=== PATIENT | female | born 1945 | race Caucasian/White ===

== ENCOUNTER → 2017-03-18 | Outpatient (CLI) | payer MEDICARE, BC ==
[2017-03-18 08:16] LABS: ALBUMIN 3.5 GM/DL (3.2-5.2); CALCIUM LEVEL 8.8 MG/DL (8.8-10.2); CREATININE FOR GFR 1.15 MG/DL (0.55-1.02); GLOMERULAR FILTRATION RATE 49.5 (>39); PHOSPHORUS LEVEL 3.7 MG/DL (2.5-4.9); POTASSIUM SERUM 4.3 MEQ/L (3.5-5.1)
== END ==
LOC: M LAB 07:08
PROVIDERS: ATTEND Physician Assistant
DX: I50.32 Chronic diastolic (congestive) heart failure (principal)

== ENCOUNTER → 2017-04-29 | Outpatient (REF) | payer MEDICARE, BC | LOC: M LAB REF 13:02 | PROVIDERS: ATTEND Internal Medicine Medical Oncology | DX: C50.919 Malignant neoplasm of unspecified site of unspecified female breast (principal) ==

== ENCOUNTER → 2017-06-19 | Outpatient (CLI) | payer MEDICARE, BC ==
[2017-06-19 08:10] LABS: ALBUMIN 3.4 GM/DL (3.2-5.2); ALBUMIN/GLOBULIN RATIO 1.17 (1.00-1.93); BILIRUBIN,TOTAL 0.7 MG/DL (0.2-1.0); CALCIUM LEVEL 8.8 MG/DL (8.8-10.2); CREATININE FOR GFR 1.03 MG/DL (0.55-1.02); GLOMERULAR FILTRATION RATE 56.2 (>39); POTASSIUM SERUM 4.4 MEQ/L (3.5-5.1); TOTAL PROTEIN 6.3 GM/DL (6.4-8.2)
== END ==
LOC: M LAB 06:53
PROVIDERS: ATTEND Physician Assistant
DX: I50.32 Chronic diastolic (congestive) heart failure (principal); E78.00 Pure hypercholesterolemia, unspecified

== ENCOUNTER → 2017-11-05 | Outpatient (CLI) | payer MEDICARE, BC ==
[2017-11-05 08:05] LABS: ALBUMIN 3.5 GM/DL (3.2-5.2); ALBUMIN/GLOBULIN RATIO 1.17 (1.00-1.93); ALKALINE PHOSPHATASE 82 U/L (45-117); ALT/SGPT 27 U/L (12-78); ANION GAP 7 MEQ/L (8-16); AST/SGOT 19 U/L (7-37); BILIRUBIN,TOTAL 0.7 MG/DL (0.2-1.0); BLOOD UREA NITROGEN 29 MG/DL (7-18); CALCIUM LEVEL 8.5 MG/DL (8.8-10.2); CARBON DIOXIDE LEVEL 27 MEQ/L (21-32); CHLORIDE LEVEL 109 MEQ/L (98-107); CHOLESTEROL LEVEL 196 MG/DL (<200); CHOLESTEROL RISK RATIO 3.266 (<5); GLOMERULAR FILTRATION RATE 52.1 (>39); GLUCOSE, FASTING 94 MG/DL (70-100); HDL CHOLESTEROL 60 MG/DL (>40); LDL CHOLESTEROL 116.8 MG/DL (<100); NON-HDL-C 136 MG/DL; POTASSIUM SERUM 4.4 MEQ/L (3.5-5.1); SODIUM LEVEL 143 MEQ/L (136-145); TOTAL PROTEIN 6.5 GM/DL (6.4-8.2); TRIGLYCERIDES LEVEL 96 MG/DL (<150)
== END ==
LOC: M LAB 06:38
DX: E78.00 Pure hypercholesterolemia, unspecified (principal); I50.32 Chronic diastolic (congestive) heart failure
CPT/HCPCS: 80053

== ENCOUNTER → 2018-01-26 | Outpatient (REF) | payer MEDICARE, BC ==
[2018-01-26 14:44] LABS: CA15-3 ANTIGEN 13.9 U/ML (<32.4)
== END ==
LOC: M LAB REF 13:19
DX: C50.919 Malignant neoplasm of unspecified site of unspecified female breast (principal)
CPT/HCPCS: 86300

== ENCOUNTER → 2018-02-01 | Outpatient (CLI) | payer MEDICARE, BC ==
[2018-02-01 08:22] LABS: ALBUMIN 3.5 GM/DL (3.2-5.2); ANION GAP 7 MEQ/L (8-16); BLOOD UREA NITROGEN 22 MG/DL (7-18); CALCIUM LEVEL 8.5 MG/DL (8.8-10.2); CARBON DIOXIDE LEVEL 27 MEQ/L (21-32); CHLORIDE LEVEL 110 MEQ/L (98-107); CREATININE FOR GFR 1.08 MG/DL (0.55-1.30); GLOMERULAR FILTRATION RATE 53.1 (>39); GLUCOSE, FASTING 99 MG/DL (70-100); MAGNESIUM LEVEL 2.3 MG/DL (1.8-2.4); PHOSPHORUS LEVEL 3.1 MG/DL (2.5-4.9); POTASSIUM SERUM 4.2 MEQ/L (3.5-5.1); SODIUM LEVEL 144 MEQ/L (136-145)
== END ==
LOC: M LAB 07:23
DX: I50.32 Chronic diastolic (congestive) heart failure (principal)
CPT/HCPCS: 83735

== ENCOUNTER → 2018-05-20 | Outpatient (CLI) | payer MEDICARE, BC ==
[2018-05-20 07:25] LABS: ALBUMIN 3.6 GM/DL (3.2-5.2); ANION GAP 10 MEQ/L (8-16); BLOOD UREA NITROGEN 32 MG/DL (7-18); CALCIUM LEVEL 8.8 MG/DL (8.8-10.2); CARBON DIOXIDE LEVEL 25 MEQ/L (21-32); CHLORIDE LEVEL 109 MEQ/L (98-107); GLUCOSE, FASTING 98 MG/DL (70-100); MAGNESIUM LEVEL 2.2 MG/DL (1.8-2.4); PHOSPHORUS LEVEL 3.7 MG/DL (2.5-4.9); POTASSIUM SERUM 4.5 MEQ/L (3.5-5.1); SODIUM LEVEL 144 MEQ/L (136-145)
== END ==
LOC: M LAB 06:46
DX: I50.32 Chronic diastolic (congestive) heart failure (principal)
CPT/HCPCS: 83735

== ENCOUNTER → 2018-08-23 | Outpatient (CLI) | payer MEDICARE, BC ==
[2018-08-23 07:33] LABS: ANION GAP 6 MEQ/L (8-16); BLOOD UREA NITROGEN 26 MG/DL (7-18); CALCIUM LEVEL 8.8 MG/DL (8.8-10.2); CARBON DIOXIDE LEVEL 25 MEQ/L (21-32); CHLORIDE LEVEL 110 MEQ/L (98-107); CREATININE FOR GFR 1.04 MG/DL (0.55-1.30); GLOMERULAR FILTRATION RATE 55.5 (>39); GLUCOSE, FASTING 105 MG/DL (70-100); MAGNESIUM LEVEL 1.9 MG/DL (1.8-2.4); POTASSIUM SERUM 4.3 MEQ/L (3.5-5.1); SODIUM LEVEL 141 MEQ/L (136-145)
== END ==
LOC: M LAB 06:27
DX: I50.32 Chronic diastolic (congestive) heart failure (principal); E83.42 Hypomagnesemia
CPT/HCPCS: 83735

== ENCOUNTER 2018-11-08 18:23 | Emergency (ER) | payer MEDICARE, BC ==
[~2018-11-08] VITALS: Ht 170.2 cm; Wt 110.0 kg
[2018-11-08 18:23] VITALS: BP 159/70
[~2018-11-08 18:23] MED LIST: ASPI325T25 PO; CARV40CA PO; CO Q200C10 PO; FURO20TA2 PO; LOSA25TA14 PO; MOME50SP2 NARES; PRAV40TA2 PO; TURM500C PO
[2018-11-08] MEDS ORDERED: CARV10CA (18:41)
[2018-11-08] MEDS ORDERED: KEFL500C17 PO (19:13)
[2018-11-08] MEDS ORDERED: VOLT1GEL15 TOP (19:13)
[2018-11-08] MEDS ORDERED: CEPHALEXIN 500 MG CAP PO ONE (19:15)
== END 2018-11-08 19:22 | disposition home or self-care (01) ==
LOC: M ED 18:23
DX: L03.115 Cellulitis of right lower limb (principal); S80.11XA Contusion of right lower leg, initial encounter; W22.8XXA Striking against or struck by other objects, initial encounter; S90.561A Insect bite (nonvenomous), right ankle, initial encounter; W57.XXXA Bitten or stung by nonvenomous insect and other nonvenomous arthropods, initial encounter; Y92.89 Other specified places as the place of occurrence of the external cause; I10 Essential (primary) hypertension; K21.9 Gastro-esophageal reflux disease without esophagitis; Z79.899 Other long term (current) drug therapy; Z79.82 Long term (current) use of aspirin
CPT/HCPCS: 99282; G0463

== ENCOUNTER → 2018-12-31 | Outpatient (CLI) | payer MEDICARE, BC ==
[~2018-12-31] MED LIST changes: +ASPI-255 PO; -ASPI325T25 PO; +CARV10CA; +KEFL500C17 PO; +VOLT1GEL15 TOP
[2018-12-31 07:56] LABS: ALBUMIN 3.5 GM/DL (3.2-5.2); BILIRUBIN,TOTAL 0.6 MG/DL (0.2-1.0); CALCIUM LEVEL 8.3 MG/DL (8.8-10.2); CHOLESTEROL RISK RATIO 2.724 (<5); CREATININE FOR GFR 1.1 MG/DL (0.55-1.30); POTASSIUM SERUM 4.2 MEQ/L (3.5-5.1); TOTAL PROTEIN 6.3 GM/DL (6.4-8.2)
== END ==
LOC: M LAB 06:54
PROVIDERS: ATTEND Physician Assistant
DX: I50.32 Chronic diastolic (congestive) heart failure (principal); E78.00 Pure hypercholesterolemia, unspecified

== ENCOUNTER 2019-02-15 19:24 | Emergency (ER) | payer MEDICARE, BC ==
[~2019-02-15] VITALS: Ht 170.2 cm; Wt 109.1 kg
[~2019-02-15 19:24] MED LIST changes: -CARV10CA; +CARV10CA PO; +GREE1TAB PO; +RA T500C2 PO; +SELE100T PO
[2019-02-15 19:25] VITALS: BP 164/70
== END 2019-02-15 20:21 | disposition left against medical advice (07) ==
LOC: M ED 19:24
DX: Z53.21 Procedure and treatment not carried out due to patient leaving prior to being seen by health care provider (principal)

== ENCOUNTER → 2019-07-07 | Outpatient (CLI) | payer MEDICARE, BC ==
[2019-07-07 07:31] LABS: CALCIUM LEVEL 8.5 MG/DL (8.8-10.2); CREATININE FOR GFR 1.23 MG/DL (0.55-1.30); GLOMERULAR FILTRATION RATE 45.6 (>39)
== END ==
LOC: M LAB 06:32
PROVIDERS: ATTEND Physician Assistant
DX: E83.42 Hypomagnesemia (principal); I50.32 Chronic diastolic (congestive) heart failure

== ENCOUNTER → 2019-10-04 | Outpatient (CLI) | payer MEDICARE, BC ==
[2019-10-04 08:41] LABS: CALCIUM LEVEL 8.5 MG/DL (8.8-10.2); CREATININE FOR GFR 1.09 MG/DL (0.55-1.30); GLOMERULAR FILTRATION RATE 52.4 (>39); POTASSIUM SERUM 4.4 MEQ/L (3.5-5.1)
[2019-10-04 15:57] LABS: MAGNESIUM LEVEL 2.2 MG/DL (1.8-2.4)
== END ==
LOC: M LAB 07:12
PROVIDERS: ATTEND Physician Assistant
DX: I50.32 Chronic diastolic (congestive) heart failure (principal)

== ENCOUNTER → 2020-01-02 | Outpatient (CLI) | payer MEDICARE, BC ==
[2020-01-02 07:02] LABS: ALBUMIN 3.6 GM/DL (3.2-5.2); BILIRUBIN,TOTAL 0.9 MG/DL (0.2-1.0); CALCIUM LEVEL 8.9 MG/DL (8.8-10.2); CHOLESTEROL RISK RATIO 3.37 (<5); CREATININE FOR GFR 1.09 MG/DL (0.55-1.30); GLOMERULAR FILTRATION RATE 52.4 (>39); POTASSIUM SERUM 4.1 MEQ/L (3.5-5.1); TOTAL PROTEIN 6.7 GM/DL (6.4-8.2)
== END ==
LOC: M LAB 05:59
PROVIDERS: ATTEND Physician Assistant
DX: I50.32 Chronic diastolic (congestive) heart failure (principal)

== ENCOUNTER → 2020-04-18 | Outpatient (CLI) | payer MEDICARE, BC ==
[~2020-04-18] MED LIST changes: +ASPI325T55 PO; +ASPI81CH33 PO; +OMEP-221 PO
[2020-07-03 12:09] LABS: GLUCOSE, FASTING SEE SEPARATE REPORT
== END ==
LOC: M LAB 07:16
PROVIDERS: ATTEND Physician Assistant
DX: I50.32 Chronic diastolic (congestive) heart failure (principal); E83.42 Hypomagnesemia

== ENCOUNTER 2020-05-21 10:17 | Emergency (ER) | payer BC, MEDICARE ==
[~2020-05-21] VITALS: Ht 170.2 cm; Wt 105.2 kg
[~2020-05-21 10:17] MED LIST changes: -ASPI325T55 PO
[2020-05-21] MEDS ORDERED: TETRACAINE 0.5% OPHTH SOLN 4ML OS ONE (11:30)
[2020-05-21] MEDS ORDERED: FLUORESCEIN OPHTH 1 MG STRIP OS ONE (11:30)
[2020-05-21 12:04] VITALS: BP 142/80
== END 2020-05-21 12:07 | disposition home or self-care (01) ==
LOC: M ED 10:17
DX: H11.32 Conjunctival hemorrhage, left eye (principal); I10 Essential (primary) hypertension; K21.9 Gastro-esophageal reflux disease without esophagitis; H33.302 Unspecified retinal break, left eye; Z79.899 Other long term (current) drug therapy; Z79.82 Long term (current) use of aspirin

== ENCOUNTER 2020-06-18 06:34 | Emergency (ER) | payer BC, MEDICARE ==
[~2020-06-18] VITALS: Ht 170.2 cm; Wt 105.4 kg
--- NOTE | 2020-06-18 07:35 | REPVR ---
PROCEDURE INFORMATION: Exam: XR Left Tibia and Fibula Exam date and time: 06/18/2020 7:25 AM Age: 75 years old Clinical indication: Swelling, leg or foot; Additional info: Bruising, bony tenderness TECHNIQUE: Imaging protocol: XR Left tibia and fibula. Views: 2 views. (4 images total) COMPARISON: No relevant prior studies available. FINDINGS: Bones/joints: No acute fracture or dislocation is identified. There is no osseous erosion or cortical destruction. No focal lytic or blastic lesion is identified. There is a small plantar calcaneal enthesophyte. Soft tissues: The soft tissues are diffusely swollen. IMPRESSION: Diffuse soft tissue swelling, nonspecific, without underlying osseous change. Electronically signed by: Ganesh Redmond On 06/18/2020 07:35:27 AM
[2020-06-18 07:56] VITALS: BP 132/80
== END 2020-06-18 07:57 | disposition home or self-care (01) ==
LOC: M ED 06:34
DX: S80.12XA Contusion of left lower leg, initial encounter (principal); W20.8XXA Other cause of strike by thrown, projected or falling object, initial encounter; Y92.098 Other place in other non-institutional residence as the place of occurrence of the external cause; I10 Essential (primary) hypertension; Z79.899 Other long term (current) drug therapy; Z79.82 Long term (current) use of aspirin; Z90.12 Acquired absence of left breast and nipple; Z96.643 Presence of artificial hip joint, bilateral

== ENCOUNTER 2020-06-26 06:34 | Emergency (ER) | payer BC, MEDICARE ==
[~2020-06-26] VITALS: Ht 170.2 cm; Wt 104.9 kg
[2020-06-26] MEDS ORDERED: ASPI325T55 PO (06:42)
[2020-06-26 07:38] LABS: HEMATOCRIT 33.7 % (36.0-47.0); MEAN CORPUSCULAR HEMOGLOBIN 29.6 pg (27.0-33.0); MEAN CORPUSCULAR HGB CONC 32.6 g/dl (32.0-36.5); MEAN CORPUSCULAR VOLUME 90.8 fl (80.0-96.0); PLATELET COUNT, AUTOMATED 180 10^3/uL (150-450); RED BLOOD COUNT 3.71 10^6/uL (4.00-5.40); WHITE BLOOD COUNT 5.3 10^3/uL (4.0-10.0)
[2020-06-26 07:57] LABS: ERYTHROCYTE SEDIMENTATION RATE 40 mm/hr (0-30)
[2020-06-26 08:03] LABS: INR 1.05; PARTIAL THROMBOPLASTIN TIME 31.9 SECONDS (24.2-38.5); PROTHROMBIN TIME 13.9 SECONDS (12.5-14.3)
--- NOTE | 2020-06-26 08:04 | REPVR ---
PROCEDURE INFORMATION: Exam: US Left Non-Vascular Joint or Other Extremity Structure, Limited Lower Extremity Exam date and time: 06/26/2020 7:46 AM Age: 75 years old Clinical indication: Swelling; Lower leg; Left; Additional info: Below knee for possible fluid collection TECHNIQUE: Imaging protocol: Limited ultrasound of the soft tissues of the left lower leg with combined grayscale and color flow imaging. COMPARISON: No relevant prior studies available. FINDINGS: Poorly defined soft tissue complex fluid collection in the region of reported trauma measuring 5.2 x 2.1 x 4.9 cm, and consistent with hematoma in the appropriate clinical setting. No surrounding subcutaneous edema or hyperemia is identified on color flow imaging, which would be expected in the setting of abscess. Follow-up imaging is recommended to ensure interval resolution. IMPRESSION: Poorly defined soft tissue complex fluid collection in the region of reported trauma measuring 5.2 x 2.1 x 4.9 cm, and consistent with hematoma in the appropriate clinical setting. Follow-up imaging is recommended to ensure interval resolution. Electronically signed by: Ken Hernandes On 06/26/2020 08:04:12 AM
[2020-06-26 08:07] LABS: C REACTIVE PROTEIN QUANTITATIV 2.15 MG/DL (0.00-0.30); CALCIUM LEVEL 8.5 MG/DL (8.8-10.2); CREATININE FOR GFR 1.11 MG/DL (0.55-1.30); GLOMERULAR FILTRATION RATE 51.2 (>39); POTASSIUM SERUM 4.4 MEQ/L (3.5-5.1)
[2020-06-26 08:48] VITALS: BP 146/71
--- NOTE | 2020-06-26 14:43 | ED PDOC ---
Post-Departure Follow-Up certified letter sent to pt re formal rad recommendations of extremity us. maribel fields pcp name and fax Patrick Enamorado MD Jun 26, 2020 14:43
== END 2020-06-26 08:51 | disposition home or self-care (01) ==
LOC: M ED 06:34
DX: S80.12XA Contusion of left lower leg, initial encounter (principal); W20.8XXA Other cause of strike by thrown, projected or falling object, initial encounter; Y92.89 Other specified places as the place of occurrence of the external cause; I10 Essential (primary) hypertension; Z96.643 Presence of artificial hip joint, bilateral; J45.909 Unspecified asthma, uncomplicated; Z79.899 Other long term (current) drug therapy; Z79.82 Long term (current) use of aspirin

== ENCOUNTER → 2020-07-23 | Outpatient (REF) | payer MEDICARE, BC ==
[~2020-07-23] MED LIST changes: +ASPI325T55 PO
[2020-07-23 17:51] LABS: APPEARANCE, URINE CLEAR (CLEAR); BACTERIA, URINE AUTO NEGATIVE (NEGATIVE); BILIRUBIN, URINE AUTO NEGATIVE (NEGATIVE); BLOOD, URINE BLOOD 2+ (NEGATIVE); COLOR, URINE YELLOW (YELLOW); GLUCOSE, URINE (UA) AUTO NEGATIVE (NEGATIVE); KETONE, URINE AUTO NEGATIVE (NEGATIVE); LEUKOCYTE ESTERASE, URINE AUTO NEGATIVE (NEGATIVE); MUCUS, URINE SMALL (NEGATIVE); NITRITE, URINE AUTO NEGATIVE (NEGATIVE); PROTEIN, URINE AUTO NEGATIVE (NEGATIVE); RBC, URINE AUTO 3 /HPF (0-3); SPECIFIC GRAVITY URINE AUTO 1.024 (1.002-1.035); SQUAMOUS EPITHELIAL CELL UR AU 1 /HPF (0-6); UROBILINOGEN, URINE AUTO 0.2 mg/dL (0.0-2.0); WBC, URINE AUTO 1 /HPF (0-3)
== END ==
LOC: M LAB REF 16:12
PROVIDERS: ATTEND Obstetrics & Gynecology
DX: N39.41 Urge incontinence (principal)

== ENCOUNTER → 2020-08-07 | Outpatient (CLI) | payer MEDICARE, BC ==
[~2020-08-07] MED LIST changes: +ALBU8.5H INH; +ASPI81TA26 PO; +CARA1TAB6 PO; +MIRA1POW3 PO; +ONDA8TAB10 PO; +PANT40TA29 PO; +PROC10TA4 PO; +tumeric PO
[2020-08-07 07:37] LABS: CALCIUM LEVEL 9.2 MG/DL (8.8-10.2); CREATININE FOR GFR 1.25 MG/DL (0.55-1.30); GLOMERULAR FILTRATION RATE 44.6 (>39); MAGNESIUM LEVEL 1.9 MG/DL (1.8-2.4); POTASSIUM SERUM 4.1 MEQ/L (3.5-5.1)
== END ==
LOC: M LAB 06:30
PROVIDERS: ATTEND Physician Assistant
DX: I50.32 Chronic diastolic (congestive) heart failure (principal); E83.42 Hypomagnesemia

== ENCOUNTER → 2020-08-07 | Outpatient (CLI) | payer MEDICARE, BC ==
[~2020-08-07] MED LIST changes: -ALBU8.5H INH; -ASPI81TA26 PO; -CARA1TAB6 PO; -MIRA1POW3 PO; -ONDA8TAB10 PO; -PANT40TA29 PO; -PROC10TA4 PO
[2020-08-07 07:42] LABS: CHOLESTEROL RISK RATIO 3.035 (<5)
== END ==
LOC: M LAB 06:27
PROVIDERS: ATTEND Nurse Practitioner Family
DX: E78.5 Hyperlipidemia, unspecified (principal); I10 Essential (primary) hypertension; E55.9 Vitamin D deficiency, unspecified; Z79.899 Other long term (current) drug therapy

== ENCOUNTER → 2020-09-06 | Outpatient (CLI) | payer MEDICARE, BC | LOC: M LABSMTC 09:32 | PROVIDERS: ATTEND Anesthesiology | DX: Z01.812 Encounter for preprocedural laboratory examination (principal); Z20.828 Contact with and (suspected) exposure to other viral communicable diseases ==

== ENCOUNTER 2020-09-11 10:13 | Day surgery (SDC) | payer MEDICARE, BC ==
[~2020-09-11] VITALS: Ht 167.6 cm; Wt 102.0 kg
[~2020-09-11 10:13] MED LIST changes: +LIDOCAINE 2% 100MG/5ML SDV (FOR ANES.) As Ordered ONE; +NS 1,000 ML IV ONE; +fentaNYL 100 MCG/2 ML INJECTION (J3010) As Ordered ONE; +propofoL 200 MG/20 ML VIAL As Ordered ONE
--- NOTE | 2020-09-11 11:43 | ROOR ---
Patient Name: Leonor Salgado Procedure Date: 09/11/2020 11:08 AM Date of : 1945 Age: 75 Room: [facility] Gender: Female Note Status: Finalized Procedure: Upper GI endoscopy Indications: Epigastric abdominal pain, Dysphagia, Heartburn Providers: Jose Elias MD Referring MD: Amara Lay Requesting Provider: Medicines: Monitored Anesthesia Care Complications: No immediate complications. Procedure: Pre-Anesthesia Assessment: - Prior to the procedure, a History and Physical was performed, and patient medications and allergies were reviewed. The patient is competent. The risks and benefits of the procedure and the sedation options and risks were discussed with the patient. All questions were answered and informed consent was obtained. Patient identification and proposed procedure were verified by the physician, the nurse and the anesthesiologist in the procedure room. Mental Status Examination: alert and oriented. Airway Examination: normal oropharyngeal airway and neck mobility. Respiratory Examination: clear to auscultation. CV Examination: normal. Prophylactic Antibiotics: The patient does not require prophylactic antibiotics. Prior Anticoagulants: The patient has taken no previous anticoagulant or antiplatelet agents. ASA Grade Assessment: III - A patient with severe systemic disease. After reviewing the risks and benefits, the patient was deemed in satisfactory condition to undergo the procedure. The anesthesia plan was to use monitored anesthesia care (MAC). Immediately prior to administration of medications, the patient was re-assessed for adequacy to receive sedatives. The heart rate, respiratory rate, oxygen saturations, blood pressure, adequacy of pulmonary ventilation, and response to care were monitored throughout the procedure. The physical status of the patient was re-assessed after the procedure. The Endoscope was introduced through the mouth, and advanced to the second part of duodenum. The upper GI endoscopy was accomplished without difficulty. The patient tolerated the procedure well. Findings: One benign-appearing, intrinsic moderate (circumferential scarring or stenosis; an endoscope may pass) stenosis was found 40 cm from the incisors. This stenosis measured 1.5 cm (inner diameter). The stenosis was traversed. Biopsies were taken with a cold forceps for histology. Biopsies were obtained from the proximal and distal esophagus with cold forceps for histology of suspected eosinophilic esophagitis. Verification of patient identification for the specimen was done by the physician and nurse using the patient's name, date and medical record number. Estimated blood loss was minimal. LA Grade B (one or more mucosal breaks greater than 5 mm, not extending between the tops of two mucosal folds) esophagitis with no bleeding was found in the distal esophagus. A small hiatal hernia was present. Scattered mild inflammation characterized by erosions, erythema and granularity was found in the gastric antrum. Biopsies were taken with a cold forceps for Helicobacter pylori testing. Patchy moderately erythematous mucosa without active bleeding and with no stigmata of bleeding was found in the duodenal bulb. Biopsies for histology were taken with a cold forceps for evaluation of celiac disease. Impression: - Benign-appearing esophageal stenosis. Biopsied. - LA Grade B reflux esophagitis. - Small hiatal hernia. - Gastritis. Biopsied. - Erythematous duodenopathy. Biopsied. Recommendation: - Patient has a contact number available for emergencies. The signs and symptoms of potential delayed complications were discussed with the patient. Return to normal activities tomorrow. Written discharge instructions were provided to the patient. - High fiber diet. - Continue present medications. - Follow an antireflux regimen. - Await pathology results. - Repeat upper endoscopy in 1 year depending on the symptoms and clinical response. - Telephone GI clinic for pathology results in 2 weeks. - Recommend acid suppression medication. - Return to primary care physician. Procedure Code(s): --- Professional --- 03398, Esophagogastroduodenoscopy, flexible, transoral; with biopsy, single or multiple Diagnosis Code(s): --- Professional --- K22.2, Esophageal obstruction K21.0, Gastro-esophageal reflux disease with esophagitis K44.9, Diaphragmatic hernia without obstruction or gangrene K29.70, Gastritis, unspecified, without bleeding K31.89, Other diseases of stomach and duodenum R10.13, Epigastric pain R13.10, Dysphagia, unspecified R12, Heartburn CPT copyright 2019 [employer]. All rights reserved. The codes documented in this report are preliminary and upon mental health specialist review may be revised to meet current compliance requirements. Jose Elias MD Jose Elias MD 09/11/2020 11:42:34 AM Electronically signed by Jose Elias MD Number of Addenda: 0 Note Initiated On: 09/11/2020 11:08 AM Estimated Blood Loss: Estimated blood loss was minimal.
[2020-09-11] MEDS ORDERED: propofoL 200 MG/20 ML VIAL As Ordered ONE (11:51)
[2020-09-11] MEDS ORDERED: ePHEDrine SULFATE 25 MG/5 ML(5MG/ML) SYRINGE As Ordered ONE (11:55)
[2020-09-11 12:45] VITALS: BP 148/65
--- NOTE | 2020-09-11 13:12 | ROOR ---
Patient Name: Leonor Salgado Procedure Date: 09/11/2020 11:16 AM Date of : 1945 Age: 75 Room: [facility] Gender: Female Note Status: Finalized Procedure: Colonoscopy Indications: High risk colon cancer surveillance: Personal history of colonic polyps Providers: Jose Elias MD Referring MD: Amara Lay Requesting Provider: Medicines: Monitored Anesthesia Care Complications: No immediate complications. Procedure: Pre-Anesthesia Assessment: - Prior to the procedure, a History and Physical was performed, and patient medications and allergies were reviewed. The patient is competent. The risks and benefits of the procedure and the sedation options and risks were discussed with the patient. All questions were answered and informed consent was obtained. Patient identification and proposed procedure were verified by the physician, the nurse and the anesthesiologist in the procedure room. Mental Status Examination: alert and oriented. Airway Examination: normal oropharyngeal airway and neck mobility. Respiratory Examination: clear to auscultation. CV Examination: normal. Prophylactic Antibiotics: The patient does not require prophylactic antibiotics. Prior Anticoagulants: The patient has taken no previous anticoagulant or antiplatelet agents. ASA Grade Assessment: III - A patient with severe systemic disease. After reviewing the risks and benefits, the patient was deemed in satisfactory condition to undergo the procedure. The anesthesia plan was to use monitored anesthesia care (MAC). Immediately prior to administration of medications, the patient was re-assessed for adequacy to receive sedatives. The heart rate, respiratory rate, oxygen saturations, blood pressure, adequacy of pulmonary ventilation, and response to care were monitored throughout the procedure. The physical status of the patient was re-assessed after the procedure. The Colonoscope was introduced through the anus and advanced to the terminal ileum, with identification of the appendiceal orifice and IC valve. The colonoscopy was performed without difficulty. The patient tolerated the procedure well. The quality of the bowel preparation was good. The terminal ileum, ileocecal valve, appendiceal orifice, and rectum were photographed. Scope insertion time was 3 minutes. Scope withdrawal time was 9 minutes. The total duration of the procedure was 12 minutes. Findings: The perianal and digital rectal examinations were normal. The terminal ileum appeared normal. Eight sessile polyps were found from the cecum to the descending colon. The polyps were 4 to 12 mm in size. These polyps were removed with a hot snare. Resection and retrieval were complete. Verification of patient identification for the specimen was done by the physician and nurse using the patient's name, date and medical record number. Estimated blood loss was minimal. An infiltrative and ulcerated partially obstructing medium-sized mass was found in the sigmoid colon. The mass was partially circumferential (involving two-thirds of the lumen circumference). The mass measured four cm in length. In addition, its diameter measured sixteen to twenty mm. No bleeding was present. This was biopsied with a cold forceps for histology. Area was tattooed with an injection of 2 mL of Belkis ink on either side of the mass. Multiple small and large-mouthed diverticula were found from sigmoid to descending colon. There was no evidence of diverticular bleeding. External and internal hemorrhoids were found during retroflexion. The hemorrhoids were medium-sized. Impression: - The examined portion of the ileum was normal. - Eight 4 to 12 mm polyps from cecum to descending colon, removed with a hot snare. Resected and retrieved. 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 Biopsied. Tattooed. - Moderate diverticulosis from sigmoid to descending colon. There was no evidence of diverticular bleeding. - External and internal hemorrhoids. Recommendation: - Patient has a contact number available for emergencies. The signs and symptoms of potential delayed complications were discussed with the patient. Return to normal activities tomorrow. Written discharge instructions were provided to the patient. - High fiber diet. - Continue present medications. - Await pathology results. - Miralax 1 capful (17 grams) in 8 ounces of water PO daily. - Repeat colonoscopy in 1 year for surveillance based on pathology results. - Telephone GI clinic for pathology results in 2 weeks. - Return to primary care physician. Procedure Code(s): --- Professional --- 04937, Colonoscopy, flexible; with removal of tumor(s), polyp(s), or other lesion(s) by snare technique 66563, Colonoscopy, flexible; with directed submucosal injection(s), any substance 23750, 59, Colonoscopy, flexible; with biopsy, single or multiple Diagnosis Code(s): --- Professional --- Z86.010, Personal history of colonic polyps K64.8, Other hemorrhoids K63.5, Polyp of colon D49.0, Neoplasm of unspecified behavior of digestive system K56.690, Other partial intestinal obstruction K57.30, Diverticulosis of large intestine without perforation or abscess without bleeding CPT copyright 2019 [employer]. All rights reserved. The codes documented in this report are preliminary and upon cardiology nurse practitioner review may be revised to meet current compliance requirements. Jose Elias MD Jose Elias MD 09/11/2020 1:12:24 PM Electronically signed by Jose Elias MD Number of Addenda: 0 Note Initiated On: 09/11/2020 11:16 AM Estimated Blood Loss: Estimated blood loss was minimal.
== END 2020-09-11 13:38 | disposition home or self-care (01) ==
LOC: M OPP 10:13
PROVIDERS: ATTEND Internal Medicine Gastroenterology
DX: Z86.010 Personal history of colon polyps (principal); Z09 Encounter for follow-up examination after completed treatment for conditions other than malignant neoplasm; K63.5 Polyp of colon; K64.8 Other hemorrhoids; D49.9 Neoplasm of unspecified behavior of unspecified site; K56.690 Other partial intestinal obstruction; K57.30 Diverticulosis of large intestine without perforation or abscess without bleeding; K22.2 Esophageal obstruction; K21.9 Gastro-esophageal reflux disease without esophagitis; K44.0 Diaphragmatic hernia with obstruction, without gangrene; K29.70 Gastritis, unspecified, without bleeding; K31.89 Other diseases of stomach and duodenum; R10.13 Epigastric pain; I77.810 Thoracic aortic ectasia; Z79.82 Long term (current) use of aspirin; Z79.899 Other long term (current) drug therapy
CPT/HCPCS: 43239; 45380; 45381; 45385; 88305; 88341; 88342; J3010

== ENCOUNTER → 2020-09-19 | Outpatient (CLI) | payer MEDICARE, BC ==
[~2020-09-19] MED LIST changes: -LIDOCAINE 2% 100MG/5ML SDV (FOR ANES.) As Ordered ONE; -NS 1,000 ML IV ONE; -fentaNYL 100 MCG/2 ML INJECTION (J3010) As Ordered ONE; -propofoL 200 MG/20 ML VIAL As Ordered ONE
[2020-09-19 17:56] LABS: BASO % 0.6 % (0.0-1.0); EOS # 0.2 10^3/uL (0.0-0.5); EOS % 2.8 % (0.0-3.0); HEMATOCRIT 36.8 % (36.0-47.0); HEMOGLOBIN 11.8 g/dl (12.0-15.5); LYMPH # 1.1 10^3/uL (1.5-5.0); MEAN CORPUSCULAR HEMOGLOBIN 29.1 pg (27.0-33.0); MEAN CORPUSCULAR HGB CONC 32.1 g/dl (32.0-36.5); MEAN CORPUSCULAR VOLUME 90.9 fl (80.0-96.0); MONO # 0.5 10^3/uL (0.0-0.8); NEUTROPHILS # 3.6 10^3/uL (1.5-8.5); NEUTROPHILS % 66.4 % (36.0-66.0); PLATELET COUNT, AUTOMATED 200 10^3/uL (150-450); RED BLOOD COUNT 4.05 10^6/uL (4.00-5.40); WHITE BLOOD COUNT 5.4 10^3/uL (4.0-10.0)
[2020-09-19 18:27] LABS: ALBUMIN 3.7 GM/DL (3.2-5.2); BILIRUBIN,DIRECT 0.1 MG/DL (0.0-0.2); BILIRUBIN,TOTAL 0.8 MG/DL (0.2-1.0); CREATININE FOR GFR 1.12 MG/DL (0.55-1.30); GLOMERULAR FILTRATION RATE 50.6 (>39)
== END ==
LOC: M LAB 16:55
PROVIDERS: ATTEND Internal Medicine Gastroenterology
DX: C18.7 Malignant neoplasm of sigmoid colon (principal)

== ENCOUNTER → 2020-09-21 | Outpatient (CLI) | payer MEDICARE, BC ==
[~2020-09-21] MED LIST changes: +GASTROGRAFIN SOLUTION 30ML (Q9963) As Ordered ONE; +ISOVUE-370 76% 100ML VIAL As Ordered ONE
--- NOTE | 2020-09-21 17:22 | REP ---
INDICATION: MAL SLICK OF SIGMOID COLON COMPARISON: 07/17/2016 TECHNIQUE: Axial contrast enhanced images from the thoracic inlet to the upper abdomen with coronal and sagittal reformations using 100 ml Isovue 370 intravenous contrast material. This CT examination was performed using the following dose reduction techniques: Automated exposure control, adjustment of mA and/or kv according to the patient's size, and use of iterative reconstruction technique. FINDINGS: The bilateral lung dacosta are relatively well aerated and stable. Biapical scarring, small focal right posterior subpleural scarring, and subpleural focal fibrotic changes posterior to the left mastectomy remains stable. No acute consolidation, significant nodule or mass lesion. No pleural effusion. No pneumothorax. 2 mm nodule in the periphery of the right lower lobe (image 48) remains stable. The mediastinum demonstrates hypodense nodules to the thyroid gland and stable atherosclerotic changes to the thoracic aorta and coronary arteries. No aortic aneurysm or dissection. No cardiomegaly or pericardial effusion. No axillary, hilar, or mediastinal adenopathy is appreciated. Surrounding musculoskeletal structures are intact and without acute osseous abnormality. IMPRESSION: Stable chronic changes. No acute mediastinal or pleuroparenchymal process. <Electronically signed by Jace De La Cruz > 09/21/20 [id number]
--- NOTE | 2020-09-21 17:36 | REP ---
INDICATION: MAL SLICK OF SIGMOID COLON. COMPARISON: 07/17/2016 TECHNIQUE: Axial contrast-enhanced images from the lung bases to the pubic symphysis using oral and 100 cc Isovue 370 intravenous contrast material. Delayed images of the abdomen obtained along with coronal and sagittal reformations. This CT examination was performed using the following dose reduction techniques: Automated exposure control, adjustment of mA and/or kv according to the patient's size, and the use of iterative reconstruction technique. FINDINGS: Heterogeneous enhancing peritoneal soft tissue is primarily identified along the right-side of the abdomen adjacent to the hepatic flexure and inferior margin of the liver with considerable scattered smaller mesenteric implants and lymph nodes as well as small amount of ascites is consistent with metastatic disease. The sigmoid colon demonstrates diverticulosis and irregularities which are incompletely evaluated due to significant beam hardening artifact from the bilateral hip prostheses. Soft tissue within the deep pelvis and multiloculated cystic lesion measuring greater than 5.5 cm within the pelvis may be related to malignancy and or gynecological in origin for which further investigation is warranted. The small bowel is unremarkable and without obstruction. Liver, spleen, pancreas, gallbladder, bilateral adrenal glands and kidneys are relatively normal. Abdominal aorta and vasculature without aneurysm or dissection. Musculoskeletal structures demonstrate age-related degenerative changes without focal osseous abnormality. IMPRESSION: 1. Peritoneal carcinomatosis primarily noted adjacent to the hepatic flexure and inferolateral margin of the liver along with scattered mesenteric adenopathy and smaller mass lesions is consistent with the given history of colonic neoplasm. 2. The pelvis is incompletely evaluated due to metallic beam hardening artifact and there appears to be soft tissue structure as well as multilobulated cystic lesion measuring roughly 5.5 cm which warrants further investigation. Findings may be neoplastic or gynecological in origin. 3. No significant ascites. No free air. No obvious hepatic metastases. <Electronically signed by Jace De La Cruz > 09/21/20 [id number]
== END ==
LOC: M RAD 14:59
PROVIDERS: ATTEND Internal Medicine Gastroenterology
DX: C18.7 Malignant neoplasm of sigmoid colon (principal); K57.30 Diverticulosis of large intestine without perforation or abscess without bleeding; Z96.643 Presence of artificial hip joint, bilateral
CPT/HCPCS: 71260; 74177; Q9963; Q9967

== ENCOUNTER 2020-10-19 19:19 | Observation (INO) | payer MEDICARE, BC ==
[~2020-10-19] VITALS: Ht 170.2 cm; Wt 104.3 kg
[~2020-10-19 19:19] MED LIST changes: -GASTROGRAFIN SOLUTION 30ML (Q9963) As Ordered ONE; -ISOVUE-370 76% 100ML VIAL As Ordered ONE; +MIRA1POW3 PO; +PANT40TA29 PO
[2020-10-19 19:52] LABS: BASO % 0.6 % (0.0-1.0); EOS # 0.1 10^3/uL (0.0-0.5); EOS % 1.7 % (0.0-3.0); HEMATOCRIT 35.4 % (36.0-47.0); LYMPH # 1.1 10^3/uL (1.5-5.0); LYMPH % 16.4 % (24.0-44.0); MEAN CORPUSCULAR HEMOGLOBIN 29.9 pg (27.0-33.0); MEAN CORPUSCULAR HGB CONC 33.9 g/dl (32.0-36.5); MEAN CORPUSCULAR VOLUME 88.3 fl (80.0-96.0); MONO # 0.6 10^3/uL (0.0-0.8); MONO % 8.3 % (0.0-5.0); NEUTROPHILS # 4.8 10^3/uL (1.5-8.5); NEUTROPHILS % 72.7 % (36.0-66.0); PLATELET COUNT, AUTOMATED 220 10^3/uL (150-450); RED BLOOD COUNT 4.01 10^6/uL (4.00-5.40); WHITE BLOOD COUNT 6.6 10^3/uL (4.0-10.0)
[2020-10-19 20:05] LABS: INR 0.97; PROTHROMBIN TIME 13.1 SECONDS (12.5-14.3)
--- NOTE | 2020-10-19 20:07 | REP ---
INDICATION: CHEST PAIN. COMPARISON: 08/04/2016. TECHNIQUE: SINGLE PORTABLE AP VIEW OF THE CHEST WAS PERFORMED. FINDINGS: THERE IS NO ACUTE INFILTRATE OR PULMONARY EDEMA. LUNGS ARE CLEAR. HEART IS NOT SIGNIFICANTLY ENLARGED. MEDIASTINAL SILHOUETTE IS UNREMARKABLE. THE VISUALIZED OSSEOUS STRUCTURES ARE INTACT. IMPRESSION: NO ACUTE PULMONARY DISEASE. <Electronically signed by Edenilson Peace > 10/19/202002
[2020-10-19 20:24] LABS: ALBUMIN 3.5 GM/DL (3.2-5.2); ALT/SGPT 27 U/L (12-78); BILIRUBIN,DIRECT < 0.1 MG/DL (0.0-0.2); BILIRUBIN,TOTAL 0.5 MG/DL (0.2-1.0); BLOOD UREA NITROGEN 24 MG/DL (7-18); CALCIUM LEVEL 9.3 MG/DL (8.8-10.2); CARBON DIOXIDE LEVEL 29 MEQ/L (21-32); CHLORIDE LEVEL 104 MEQ/L (98-107); CK-MB VALUE MASS 1.2 NG/ML (<3.6); CPK CREATINE PHOSPHOKINASE 87 U/L (26-192); CREATININE FOR GFR 1.18 MG/DL (0.55-1.30); GLOMERULAR FILTRATION RATE 47.7 (>39); GLUCOSE, FASTING 105 MG/DL (70-100); LIPASE 128 U/L (73-393); MB/CK RELATIVE INDEX 1.38 (< OR =4); SODIUM LEVEL 139 MEQ/L (136-145); TROPONIN I < 0.02 NG/ML (< 0.10)
[2020-10-19] MEDS ORDERED: GI COCKTAIL 50ML BTL(HYOSCYAMINE/MAALOX/LIDOCAINE VISCOUS)(1:3:1) PO ONE (20:30)
[2020-10-20] MEDS ORDERED: ASPI81TA26 PO (00:05)
[2020-10-20] MEDS ORDERED: ALBU8.5H INH (00:06)
[2020-10-20 00:29] LABS: RSV AMPLIFICATION NEGATIVE (NEGATIVE)
[2020-10-20] MEDS ORDERED: MAALOX 30 ML SUSP *UDC PO PRN (04:45)
[2020-10-20] MEDS ORDERED: ACETAMINOPHEN TAB 650MG DOSE (2X325MG) PO PRN (04:45)
[2020-10-20] MEDS ORDERED: NITROGLYCERIN 0.4 MG SUBL TABLET SL PRN (04:45)
[2020-10-20] MEDS ORDERED: ALBUTEROL 90 MCG/ACT 8GM HFA INHALER INH PRN (04:45)
[2020-10-20] MEDS ORDERED: FUROSEMIDE 20 MG TAB PO PRN (04:45)
--- NOTE | 2020-10-20 04:49 | HPEPDOC ---
General Date of Admission Date of Service: Oct 20, 2020 Primary Care Physician: Lc Marion M.D. Other Providers Barbra Lay NP Attending Physician: Rod Ly MD Chief Complaint The patient is a 75-year-old female admitted with a reason for visit of Chest Pain. Source: Patient, Old records Exam Limitations: No limitations History of Present Illness About 15 hours prior to admission the patient noticed a stabbing cramping chest pain. She has a long-standing history of chest wall and breast pain after a left mastectomy. However this pain felt different than her usual pain. At the same time she noticed that she was "burping terribly". She tried Maalox which helped a little. She also had some dizziness associated with this episode. However, a few hours after she took the Maalox the pain returned and she sought care at the emergency department for further evaluation and treatment. It is notable that the patient has a new diagnosis of colon cancer and is in the process of starting chemotherapy with Dr. Gage. Currently she has a PET/CT scheduled for later this month as well as placement of a port. Home Medications Scheduled Aspirin (Aspirin EC) 81 Mg Tablet.dr, 81 MG PO QHS, (Reported) Carvedilol Phosphate (Carvedilol ER) 10 Mg Cap, 10 MG PO QHS, (Reported) Losartan Potassium (Losartan Potassium) 25 Mg Tab, 25 MG PO QHS, (Reported) Mometasone Furoate (Mometasone Furoate) 50 Mcg/Act Spr, 2 SPRAY NARES DAILY, (Reported) Pantoprazole Sodium (Pantoprazole Sodium) 40 Mg Tablet.dr, 40 MG PO BID, (Reported) Polyethylene Glycol 3350 (Miralax) 17 Gm Powd.pack, 17 GM PO DAILY, (Reported) Pravastatin Sodium (Pravastatin Sodium) 40 Mg Tab, 40 MG PO QPM, (Reported) Sucralfate (Carafate) 1 Gm Tablet, 1 GM PO ACHS 4 times per day take on an empty stomach Ubidecarenone (Co Q-10) 200 Mg Cap, 1 CAP PO QHS, (Reported) [tumeric] , 500 MG PO QHS, (Reported) Scheduled PRN Albuterol Sulfate (Albuterol Sulfate Hfa) 8.5 Gm Hfa.aer.ad, 2 PUFF INH QID PRN for SHORTNESS OF BREATH, (Reported) Furosemide (Furosemide) 20 Mg Tab, 20 MG PO DAILY PRN for edema, (Reported) Allergies Coded Allergies: SEASONAL ALLERGIES (Verified Allergy, Unknown, 09/05/20) sulfamethoxazole (Verified Allergy, Unknown, hives, 09/05/20) trimethoprim (Verified Allergy, Unknown, hives, 09/05/20) Past Medical History Medical History Hypertension Hypercholesterolemia GERD Environmental allergies Lymphedema Asthma Obstructive sleep apnea, palliated on CPAP Status post left mastectomy and right breast lumpectomy Colon cancer Surgical History TMJ procedures 2 bilateral hip replacements Left mastectomy/right lumpectomy Hysterectomy Bilateral cataract removal Colonoscopy Family History Her father at 84 years old after mitral valve repair. Her mother at 68 years old of colon cancer. Her sister at 58 years old of cervical cancer followed by rectal cancer. Her brother at 57 years old of sarcoma of the l eg followed by lung cancer. She has 2 daughters currently have no known medical problems (and are getting regular cancer screenings). A-FIB/CHADSVASC A-FIB History Current/History of A-Fib/PAF?: No Current PO Anticoag Therapy: No Review of Systems Constitutional: Denies: Chills, Fever ENT: Denies: Dysphagia, Sore Throat Pulmonary: Denies: Dyspnea, Cough, Pleuritic Chest Pain Cardiovascular: Reports: Chest Pain; Denies: Palpitations, Orthopnea Gastrointestinal: Reports: Other Symptoms (significant belching); Denies: Nausea, Vomiting Hematologic: Denies: Bruising, Bleeding Excessively Neurological: Denies: Change in speech Psych: Reports: Mood Normal; Denies: Memory Issues Physical Examination General Exam: Positive: Alert, Cooperative, No Acute Distress (laying awake in her ER stretcher when I entered the room) Eye Exam: Positive: PERRLA, EOMI; Negative: Conjunctiva & lids normal (there is either mild conjunctivitis or lateral pterygium noted in her right eye) ENT Exam: Positive: Atraumatic, Mucous membr. moist/pink, Pharynx Normal Neck Exam: Positive: Supple; Negative: JVD, Lymphadenopathy Chest Exam: Positive: Clear to auscultation, Normal air movement, Other (there is no reproducible or point tenderness on examination of her left chest wall) Heart Exam: Positive: Rate Normal, Normal S1, Normal S2, Murmurs (is a 3/6 midsystolic murmur noted not loudest at left lower sternal border) Abdomen Exam: Positive: Normal bowel sounds, Soft; Negative: Tenderness (including deeper epigastric palpation), Hepatospenomegaly Extremity Exam: Positive: Edema (she has it appears to be chronic lymphedema with venous stasis changes. It's nonpitting) Neuro Exam: Positive: Normal Speech, Normal Tone Psych Exam: Positive: Mental status NL, Mood NL, Memory Intact, Oriented x 3 Vital Signs Vital Signs Date Time Temp Pulse Resp B/P (MAP) Pulse Ox O2 Delivery O2 Flow Rate FiO2 10/20/20 04:00 68 19 134/86 (102) 96 Room Air 10/20/20 01:23 96.9 Laboratory Data Labs 24H Laboratory Tests 2 10/19/20 19:45: Immature Granulocyte % (Auto) 0.3, Neutrophils (%) (Auto) 72.7H, Lymphocytes (%) (Auto) 16.4L, Monocytes (%) (Auto) 8.3H, Eosinophils (%) (Auto) 1.7, Basophils (%) (Auto) 0.6, Neutrophils # (Auto) 4.8, Lymphocytes # (Auto) 1.1L, Monocytes # (Auto) 0.6, Eosinophils # (Auto) 0.1, Basophils # (Auto) 0.0, Nucleated Red Blood Cells % (auto) 0.0, Prothrombin Time 13.1, Prothromb Time International Ratio 0.97, Anion Gap 6L, Glomerular Filtration Rate 47.7, Calcium Level 9.3, Total Bilirubin 0.5, Direct Bilirubin < 0.1, Aspartate Amino Transf (AST/SGOT) 23, Alanine Aminotransferase (ALT/SGPT) 27, Alkaline Phosphatase 91, Total Creatine Kinase 87, Creatine Kinase MB 1.2, Creatine Kinase MB Relative Index 1.38, Troponin I < 0.02, Total Protein 7.0, Albumin 3.5, Albumin/Globulin Ratio 1.0L, Lipase 128 10/19/20 23:37: Coronavirus (COVID-19)(PCR) NEGATIVE, Influenza Type A (RT-PCR) NEGATIVE, Influenza Type B (RT-PCR) NEGATIVE, Respiratory Syncytial Virus (PCR) NEGATIVE CBC/BMP Laboratory Tests 10/19/20 19:45 Problems (1) Chest pain Status: Acute Problem Specific Plan: Monitor Clinically, Repeat Labs Problem Text: Her initial evaluation in the ER was negative, but because of her risk factors, the evaluating physician, was strongly recommending we do a full rule out with 3 sets of troponins. I've ordered this. The etiology of her chest pain could be quite wide and varied including: Coronary ischemia, anxiety, gastroesophageal reflux, and chest wall pain from previous surgeries. I tend to think that it might be gastrointestinal related, but I'm not confident enough in that to send her from the ER without a full cardiac evaluation. (2) Cancer of sigmoid colon Status: Acute Problem Text: This is a new diagnosis for her. She still in process of having this worked up completely and preparing for a long treatment needed. Certainly her second cancer, especially since its colon cancer which was what her mother of, would be anxiety producing. (3) H/O left mastectomy Problem Specific Plan: Monitor Clinically Problem Text: She seems to have persistent chest wall pain after her mastectomy. She reports the character of of her recent pain is different than her usual chest wall pain, however, I still could not rule out this being the source of her chest pain. (4) Chronic GERD Status: Chronic Problem Text: This seems to be an ongoing issue for her. Because the onset of her current episode of chest pain was accompanied with belching, and seemed to return with increased intra-abdominal pressure, I think this is likely the etiology of her current chest pain. I prescribed her Maalox for when necessary and continued her regular medication of pantoprazole. (5) HTN (hypertension) Status: Chronic Problem Text: Continue current medications, monitor. (6) Hyperlipidemia Status: Chronic Problem Text: Continue current medications, monitor. Plan / VTE VTE Prophylaxis Ordered?: Yes Plan Advanced Directives: Health Care Proxy (HCP) (she verbally identified her daughter, Charito Castro [phone], as her alternate decision-maker if she was unable to make her own medical decisions. She very clearly expressed a wish to be DNR and states that she has a MOLST form filled out at home. She did not have that with her now but is requesting we honor her DNR wishes while her family retrieves for her.) Rod Ly MD Oct 20, 2020 04:49
[2020-10-20] MEDS ORDERED: SUCRALFATE SUSP 1GM/10ML UD PO SCH (07:30)
[2020-10-20 08:07] LABS: BLOOD UREA NITROGEN 23 MG/DL (7-18); CALCIUM LEVEL 9.5 MG/DL (8.8-10.2); CARBON DIOXIDE LEVEL 26 MEQ/L (21-32); CHLORIDE LEVEL 106 MEQ/L (98-107); CREATININE FOR GFR 1.11 MG/DL (0.55-1.30); GLOMERULAR FILTRATION RATE 51.2 (>39); GLUCOSE, FASTING 106 MG/DL (70-100); POTASSIUM SERUM 4.3 MEQ/L (3.5-5.1); SODIUM LEVEL 139 MEQ/L (136-145); TROPONIN I < 0.02 NG/ML (< 0.10)
[2020-10-20] MEDS ORDERED: ISOVUE-370 76% 100ML VIAL As Ordered ONE (08:11)
[2020-10-20 08:52] VITALS: BP 136/82
[2020-10-20] MEDS ORDERED: CARA1TAB6 PO (08:52)
[2020-10-20] MEDS ORDERED: CARVedilol 6.25 MG TAB PO SCH (09:00)
[2020-10-20] MEDS ORDERED: PANTOPRAZOLE 40MG TAB (PROTONIX) PO SCH (09:00)
[2020-10-20] MEDS ORDERED: ENOXAPARIN 40MG/0.4ML SYRINGE (J1650 PER 10MG) SC SCH (09:00)
[2020-10-20] MEDS ORDERED: MIRALAX *UNIT DOSE* 17GM PACKET PO SCH (09:00)
--- NOTE | 2020-10-20 09:09 | REP ---
INDICATION: R/O PE CHEST PAIN. COMPARISON: 09/21/2020. TECHNIQUE: CT angiogram chest performed following the intravenous administration of 100 cc of Isovue 370. Sagittal and coronal reconstruction images are performed. FINDINGS: Lungs: Diffuse fibro atelectatic changes are noted. There is scattered calcified granulomas. There is no focal infiltrate. Mediastinum: No adenopathy. Pulmonary arteries: No evidence of pulmonary embolism. Irish: No adenopathy. Axilla: No adenopathy. Metallic clips are seen in the left axilla. There has been a prior left mastectomy. Pleura: No effusion. Heart: Mildly enlarged. Thoracic aorta: There are atherosclerotic calcifications with ectasia of the ascending thoracic aorta, which measures 4.5 cm in AP dimension. There is no dissection. Upper abdominal structures: There is again evidence of peritoneal carcinomatosis. There is mild perihepatic ascites. Subcentimeter gallstone is seen in the gallbladder. Visualized osseous structures: There are degenerative changes of the spine without compression deformity. IMPRESSION: No CT evidence of pulmonary embolism.No infiltrate seen. <Electronically signed by Edenilson Peace > 10/20/20 0905
[2020-10-20 10:26] VITALS: BP 130/80
--- NOTE | 2020-10-20 10:26 | DS.PDOC ---
Discharge Summary General Date of Admission Oct 19, 2020 at 19:20 Date of Discharge 10/20/20 Discharge Summary DISCHARGE DIAGNOSES: Atypical Chest pain-PE, AK and aortic dissection ruled out Gastritis Hiatal Hernia ectasia of the ascending thoracic aorta 4.5 cM-no dissection. peritoneal carcinomatosis. mild perihepatic ascites. Subcentimeter gallstone degenerative changes of the spine Hypertension Hypercholesterolemia GERD Environmental allergies Lymphedema Asthma Obstructive sleep apnea, palliated on CPAP Status post left mastectomy and right breast lumpectomy New diagnosis Colon cancer DISCHARGE MEDICATIONS: Please see below. ALLERGIES: Please see below. DISCHARGE INSTRUCTIONS: PCP and GI fu 7days. Medical oncology as previously scheduled. HOSPITAL COURSE: 75 y/o female presented to ER with left anterior substernal chest pain, burping episodes w/o n/v/diaphoresis lasting for a few minutes w/o cough, sob. In the ER, EKG showed no acute ischemia, troponins negative x 2. CXR: no widened mediastinum. CT chest: no PE, aortic dissection. Pt was given carafate and continued on protonix bid. Pt had resolution of her atypical chest pain which was most likely gastritis. 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 Elias if she has persistent dyspepsia, coffee ground emesis, hematemesis, brbpr,or melena, wt loss, dysphagia or odynophagia. Otherwise she is to continue on 4-6weeks of her carafate and PPI. PCP to schedule stress test if persistent symptoms. PHYSICAL EXAMINATION ON DISCHARGE: VITAL SIGNS: Please see below. GENERAL: aaox 3 no distress HEENT: no jvd moist mm no stridor or carotid bruit NECK: supple full ROM CARDIOVASCULAR EXAMINATION: S1S2 rrr no m/r/g RESPIRATORY EXAMINATION: left mastectomy scar CTAB no w/r/r AEBE ABDOMINAL EXAMINATION: obese soft nt nd EXTREMITIES:no cyanosis or clubbing LABORATORY DATA: Please see below. IMAGING STUDIES: SEE BELOW INDICATION: R/O PE CHEST PAIN. COMPARISON: 09/21/2020. TECHNIQUE: CT angiogram chest performed following the intravenous administration of 100 cc of Isovue 370. Sagittal and coronal reconstruction images are performed. FINDINGS: Lungs: Diffuse fibro atelectatic changes are noted. There is scattered calcified granulomas. There is no focal infiltrate. Mediastinum: No adenopathy. Pulmonary arteries: No evidence of pulmonary embolism. Irish: No adenopathy. Axilla: No adenopathy. Metallic clips are seen in the left axilla. There has been a prior left mastectomy. Pleura: No effusion. Heart: Mildly enlarged. Thoracic aorta: There are atherosclerotic calcifications with ectasia of the a scending thoracic aorta, which measures 4.5 cm in AP dimension. There is no dissection. Upper abdominal structures: There is again evidence of peritoneal carcinomatosis. There is mild perihepatic ascites. Subcentimeter gallstone is seen in the gallbladder. Visualized osseous structures: There are degenerative changes of the spine without compression deformity. IMPRESSION: No CT evidence of pulmonary embolism.No infiltrate seen. TIME SPENT ON DISCHARGE: 30 minutes. Vital Signs/I&Os Vital Signs Date Time Temp Pulse Resp B/P (MAP) Pulse Ox O2 Delivery O2 Flow Rate FiO2 10/20/20 09:19 63 18 94 Room Air 10/20/20 08:52 136/82 10/20/20 01:23 96.9 Laboratory Data Labs 24H Laboratory Tests 2 10/19/20 19:45: Immature Granulocyte % (Auto) 0.3, Neutrophils (%) (Auto) 72.7H, Lymphocytes (%) (Auto) 16.4L, Monocytes (%) (Auto) 8.3H, Eosinophils (%) (Auto) 1.7, Basophils (%) (Auto) 0.6, Neutrophils # (Auto) 4.8, Lymphocytes # (Auto) 1.1L, Monocytes # (Auto) 0.6, Eosinophils # (Auto) 0.1, Basophils # (Auto) 0.0, Nucleated Red Blood Cells % (auto) 0.0, Prothrombin Time 13.1, Prothromb Time International Ratio 0.97, Anion Gap 6L, Glomerular Filtration Rate 47.7, Calcium Level 9.3, Total Bilirubin 0.5, Direct Bilirubin < 0.1, Aspartate Amino Transf (AST/SGOT) 23, Alanine Aminotransferase (ALT/SGPT) 27, Alkaline Phosphatase 91, Total Creatine Kinase 87, Creatine Kinase MB 1.2, Creatine Kinase MB Relative Index 1.38, Troponin I < 0.02, Total Protein 7.0, Albumin 3.5, Albumin/Globulin Ratio 1.0L, Lipase 128 10/19/20 23:37: Coronavirus (COVID-19)(PCR) NEGATIVE, Influenza Type A (RT-PCR) NEGATIVE, Influenza Type B (RT-PCR) NEGATIVE, Respiratory Syncytial Virus (PCR) NEGATIVE 10/20/20 07:22: Anion Gap 7L, Glomerular Filtration Rate 51.2, Calcium Level 9.5, Troponin I < 0.02 CBC/BMP Laboratory Tests 10/19/20 19:45 10/20/20 07:22 Discharge Medications Scheduled Aspirin (Aspirin EC) 81 Mg Tablet.dr, 81 MG PO QHS, (Reported) Carvedilol Phosphate (Carvedilol ER) 10 Mg Cap, 10 MG PO QHS, (Reported) Losartan Potassium (Losartan Potassium) 25 Mg Tab, 25 MG PO QHS, (Reported) Mometasone Furoate (Mometasone Furoate) 50 Mcg/Act Spr, 2 SPRAY NARES DAILY, (Reported) Pantoprazole Sodium (Pantoprazole Sodium) 40 Mg Tablet.dr, 40 MG PO BID, ( Reported) Polyethylene Glycol 3350 (Miralax) 17 Gm Powd.pack, 17 GM PO DAILY, (Reported) Pravastatin Sodium (Pravastatin Sodium) 40 Mg Tab, 40 MG PO QPM, (Reported) Sucralfate (Carafate) 1 Gm Tablet, 1 GM PO ACHS 4 times per day take on an empty stomach Ubidecarenone (Co Q-10) 200 Mg Cap, 1 CAP PO QHS, (Reported) [tumeric] , 500 MG PO QHS, (Reported) Scheduled PRN Albuterol Sulfate (Albuterol Sulfate Hfa) 8.5 Gm Hfa.aer.ad, 2 PUFF INH QID PRN for SHORTNESS OF BREATH, (Reported) Furosemide (Furosemide) 20 Mg Tab, 20 MG PO DAILY PRN for edema, (Reported) Allergies Coded Allergies: SEASONAL ALLERGIES (Verified Allergy, Unknown, 09/05/20) sulfamethoxazole (Verified Allergy, Unknown, hives, 09/05/20) trimethoprim (Verified Allergy, Unknown, hives, 09/05/20) LORENA DARNELL MD Oct 20, 2020 10:26
--- NOTE | 2020-10-20 12:39 | ECGEPIP ---
[facility] Test Date: 2020-10-20 Pat Name: QUINN GILL Department: Room: 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 Normal sinus rhythm LA conduction disturbance? Marginal anterolateral ST abnormalities Less ectopy but otherwise unchanged from 10/19/20. Electronically Signed on 10-20-2020 12:39:26 EST by Sher Chávez
--- NOTE | 2020-10-20 12:43 | ECGEPIP ---
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
[2020-10-20] MEDS ORDERED: LOSARTAN 25 MG TAB PO SCH (21:00)
[2020-10-20] MEDS ORDERED: ASPIRIN 81 MG ENTERIC TAB PO SCH (21:00)
[2020-10-20] MEDS ORDERED: PRAVASTATIN 20 MG TAB PO SCH (21:00)
[2020-10-22] MEDS ORDERED: PROC10TA4 PO (12:45)
[2020-10-22] MEDS ORDERED: ONDA8TAB10 PO (12:45)
== END 2020-10-20 10:37 | disposition home or self-care (01) ==
LOC: M ED 19:19 → M ED INP 19:20
PROVIDERS: ADMIT Family Medicine; ATTEND Family Medicine
DX: R07.89 Other chest pain (principal); K29.70 Gastritis, unspecified, without bleeding; K44.9 Diaphragmatic hernia without obstruction or gangrene; I71.2 Thoracic aortic aneurysm, without rupture; C48.2 Malignant neoplasm of peritoneum, unspecified; R18.8 Other ascites; K80.20 Calculus of gallbladder without cholecystitis without obstruction; I10 Essential (primary) hypertension; E78.00 Pure hypercholesterolemia, unspecified; I89.0 Lymphedema, not elsewhere classified; J45.909 Unspecified asthma, uncomplicated; G47.33 Obstructive sleep apnea (adult) (pediatric); C18.7 Malignant neoplasm of sigmoid colon; K21.9 Gastro-esophageal reflux disease without esophagitis; Z79.82 Long term (current) use of aspirin; Z79.899 Other long term (current) drug therapy; Z88.2 Allergy status to sulfonamides; Z88.1 Allergy status to other antibiotic agents
CPT/HCPCS: 36415; 71045; 71275; 80053; 82378; 82550; 82553; 82728; 83550; 83690; 84484; 85025; 85610; 85730; 87631; 93005; 93041; 94760; 96372; 99285; G0378; J1650; Q9967

== ENCOUNTER → 2020-10-29 | Outpatient (CLI) | payer MEDICARE, BC ==
[~2020-10-29] MED LIST changes: +ALBU8.5H INH; +ASPI81TA26 PO; +CARA1TAB6 PO; +OMEP40CA97 PO; +ONDA8TAB10 PO; +PROC10TA4 PO
--- NOTE | 2020-10-30 18:14 | REP ---
INDICATION: RESTAGING SIGMOID COLON C18.7. History of right breast cancer 1998, left breast cancer in 2010. Sigmoid colon cancer with peritoneal metastasis. COMPARISON: Comparison CT study of the abdomen and pelvis 21 September 2020.. TECHNIQUE: Forty-nine minutes following the intravenous injection of a 14.40 mCi dose of F-18 FDG, three-dimensional PET scintigraphy is acquired from the skull base to the proximal thighs. Triplanar noncontrast CT scanning is acquired through the same anatomic range for attenuation correction, and image registration with scan parameters optimized to minimize radiation exposure to the patient. PET scintigraphy and CT datasets were fused and displayed on a workstation with multiplanar and projection display capability. FINDINGS: Head and neck soft tissues are unremarkable. There is a subcentimeter right axillary lymph node showing mildly hypermetabolic uptake. Maximum standard uptake value within this right axillary lymph node is 3.98. There is no abnormal hypermetabolic uptake within the thorax. No abnormal pulmonary parenchymal or hilar or mediastinal maria l uptake is seen. In the abdomen and pelvis, there is evidence of omental caking and perhaps peritoneal studding in the right upper quadrant. Multiple foci of nodularity and hypermetabolic uptake are seen throughout the greater omentum. Maximum standard uptake value ranges from 5.08-10.95 in the more confluent area of omental caking. There is mesenteric maria l hypermetabolic uptake with maximum standard uptake value in a cyst central focus of 7.06. There is some right lower quadrant pericolonic infiltrative disease with maximum standard uptake value 5.09. There is confluent mass effect in the Milagros colonic region in the sigmoid colon deep in the pelvis. Maximum standard uptake value in this large confluent hypermetabolic mass is 12.69. Lastly there is a small subcentimeter focus of hypermetabolic uptake in the L4 vertebral body just to the right of midline. No discernible bone destruction is seen. Maximum standard uptake value in this small focus is 5.79 which is felt to be mildly increased. IMPRESSION: Hypermetabolic uptake is seen in the bulky confluent pelvic mass surrounding this rectosigmoid colon. Multiple foci of hypermetabolic uptake are seen in mesenteric and pericolonic maria l foci as well as in the omentum. No definite liver lesion. No intrathoracic disease is seen. There is 1 hypermetabolic maria l focus in the right axilla. An equivocal focus of slightly increased uptake is seen in the L4 vertebral body. <Electronically signed by Chaz Valenzuela > 10/30/20 [id number]
== END ==
LOC: M PLARAD 14:29
PROVIDERS: ATTEND Internal Medicine Medical Oncology
DX: C18.7 Malignant neoplasm of sigmoid colon (principal); Z85.3 Personal history of malignant neoplasm of breast
CPT/HCPCS: 78815; A9552

== ENCOUNTER → 2020-10-31 | Outpatient (CLI) | payer MEDICARE, BC ==
[~2020-10-31] MED LIST changes: +LIDOCAINE 1% MDV 20ML VIAL As Ordered ONE; +MIDAZOLAM INJ 2MG/2ML VIAL (J2250 PER 1MG) As Ordered ONE; -OMEP40CA97 PO; +ceFAZolin 2 GM/D5W 50 ML IV BAG (J0690 PER 500MG) As Ordered ONE; +diphenhydrAMINE 50MG/ML VIAL (J1200) As Ordered ONE; +fentaNYL 100 MCG/2 ML INJECTION (J3010) As Ordered ONE
--- NOTE | 2020-10-31 14:48 | IRHP ---
[facility] IR Pre-Procedure H & P General Date of Service: Oct 31, 2020 Procedure: Same Day Surgery Interval History and Physical I have seen the patient and reviewed last H & P performed within 30 days. There is no significant interval change. History of Present Illness Chief Complaint The patient is a 75-year-old female admitted with a reason for visit of colon ca PRE-PROCEDURE DIAGNOSIS: colon cancer HEART: normal rate. LUNGS: normal breathing at rest. ASA Classification ASA Classification: III-Severe systemic dis. Mallampati Score: II NPO: Yes Problems with prior sedation: No Obstructive Sleep Apnea: Yes Plan moderate sedation Allergies Coded Allergies: SEASONAL ALLERGIES (Verified Allergy, Unknown, 09/05/20) sulfamethoxazole (Verified Allergy, Unknown, hives, 09/05/20) trimethoprim (Verified Allergy, Unknown, hives, 09/05/20) Home Medications Scheduled Aspirin (Aspirin EC), 81 MG PO QHS, (Reported) Carvedilol Phosphate (Carvedilol ER), 10 MG PO QHS, (Reported) Losartan Potassium (Losartan Potassium), 25 MG PO QHS, (Reported) Mometasone Furoate (Mometasone Furoate), 2 SPRAY NARES DAILY, (Reported) Pantoprazole Sodium (Pantoprazole Sodium), 40 MG PO BID, (Reported) Polyethylene Glycol 3350 (Miralax), 17 GM PO DAILY, (Reported) Pravastatin Sodium (Pravastatin Sodium), 40 MG PO QPM, (Reported) Sucralfate (Carafate), 1 GM PO ACHS Ubidecarenone (Co Q-10), 1 CAP PO QHS, (Reported) [tumeric], 500 MG PO QHS, (Reported) Scheduled PRN Albuterol Sulfate (Albuterol Sulfate Hfa), 2 PUFF INH QID PRN for SHORTNESS OF BREATH, (Reported) Furosemide (Furosemide), 20 MG PO DAILY PRN for edema, (Reported) Ondansetron HCl (Ondansetron HCl), 8 MG PO Q8HP PRN for NAUSEA OR VOMITING Prochlorperazine Maleate (Prochlorperazine Maleate), 10 MG PO Q6H PRN for NAUSEA OR VOMITING VS, I&O, 24H, Fishbone Vital Signs/I&O Vital Signs Date Time Temp Pulse Resp B/P (MAP) Pulse Ox O2 Delivery O2 Flow Rate FiO2 10/31/20 13:55 97.4 74 20 97 Room Air MARITZA NORMAN MD Oct 31, 2020 14:48
[2020-10-31 17:35] VITALS: BP 131/74
--- NOTE | 2020-11-02 09:46 | POST-OPPD ---
Postoperative Procedure Note Date Of Procedure: Oct 31, 2020 Time Of Procedure: 16:00 IR Ultrasound and fluoroscopy guided port placement. IR Ultrasound of the neck. IR Moderate sedation. Clinical indication: Colon cancer. Physician: Dr. Cool. Procedure: The patient was advised of the benefits, risks, and alternatives of the procedure and informed consent was obtained. A time-out was performed with verification of the patient's name, MRN, site of procedure and type of procedure to be performed. The patient was positioned in the supine position on the angiographic table. The site was prepped and draped in the usual sterile fashion. Moderate sedation was performed by the physician including the presence of an independent trained RN who assisted and monitored the patient's level of consciousness and physiologic status. Following the administration of fentanyl and Versed , the physician spent 45 minutes of continuous face to face time with the patient. Ultrasound of the neck reveals a patent and compressible right internal jugular vein. A videotape sales representative radiograph reveals mediastinal widening. The neck and anterior chest wall were anesthetized with lidocaine. The right internal jugular vein was accessed using a microintroducer needle under ultrasound guidance, via a lateral approach. An 018 wire was advanced into the superior vena cava, the needle was removed and a microsheath was placed. An Amplatz wire was then passed into the inferior vena cava. An incision at the internal jugular vein access site and anterior chest wall were made using a scalpel. An incision was made at the anterior chest wall. A small pocket was created using a combination of blunt and sharp dissection. A tunneling device was then used to pass the catheter from the pocket to the neck puncture site. An 8- [employer] Smart power port was then positioned in the pocket. The catheter was then measured and cut. The introducer sheath was exchanged for a peel-away sheath. The catheter was passed through the peel-away sheath into the internal jugular vein and the peel-away sheath was removed. The port tip was positioned at the cavoatrial junction. The port was then accessed with a Ramírez needle. The port flushes and aspirates well. The puncture site in the neck was closed. The chest wall incision was then closed with 2-0 Vicryl and 4-0 Monocryl. Glue and Steri- Strips were applied. A sterile dressing was then applied. The patient tolerated the procedure well and was returned to the PRU in stable condition. Estimated blood loss: <5 ml. Complications: None. Conclusion: 1. Successful placement of an 8-[employer] Smart power port via the right internal jugular vein. The port is ready for immediate use. 2. Patient to follow up in IR clinic in 2 weeks. Thank you for this referral. MARITZA COOL MD Nov 02, 2020 09:46
== END ==
LOC: M IRPRO 13:22
PROVIDERS: ATTEND Radiology Diagnostic Radiology
DX: C18.9 Malignant neoplasm of colon, unspecified (principal); J30.89 Other allergic rhinitis; Z79.82 Long term (current) use of aspirin; Z79.899 Other long term (current) drug therapy
CPT/HCPCS: 36561; 99152; 99153; C1769; C1788; C1894; J0690; J1200; J1642; J1644; J2250; J3010

== ENCOUNTER → 2021-01-16 | Outpatient (CLI) | payer MEDICARE, BC ==
[~2021-01-16] MED LIST changes: +COVI30VI IM; -LIDOCAINE 1% MDV 20ML VIAL As Ordered ONE; -MIDAZOLAM INJ 2MG/2ML VIAL (J2250 PER 1MG) As Ordered ONE; +OMEP40CA97 PO; +POTA10TA67 PO; -ceFAZolin 2 GM/D5W 50 ML IV BAG (J0690 PER 500MG) As Ordered ONE; -diphenhydrAMINE 50MG/ML VIAL (J1200) As Ordered ONE; -fentaNYL 100 MCG/2 ML INJECTION (J3010) As Ordered ONE
[2021-01-16 15:55] LABS: BLOOD UREA NITROGEN 16 MG/DL (7-18); CALCIUM LEVEL 9.3 MG/DL (8.8-10.2); CARBON DIOXIDE LEVEL 29 MEQ/L (21-32); CHLORIDE LEVEL 108 MEQ/L (98-107); CREATININE FOR GFR 0.93 MG/DL (0.55-1.30); GLOMERULAR FILTRATION RATE > 60.0 (>39); GLUCOSE, FASTING 99 MG/DL (70-100); POTASSIUM SERUM 4.4 MEQ/L (3.5-5.1); SODIUM LEVEL 141 MEQ/L (136-145)
== END ==
LOC: M LAB 15:11
PROVIDERS: ATTEND Physician Assistant
DX: I50.32 Chronic diastolic (congestive) heart failure (principal)

== ENCOUNTER → 2021-01-30 | Outpatient (CLI) | payer MEDICARE, BC ==
[~2021-01-30] MED LIST changes: +AMLO10TA PO; +GASTROGRAFIN SOLUTION 30ML (Q9963) As Ordered ONE; +ISOVUE-370 76% 100ML VIAL As Ordered ONE; +LOSA50TA88 PO; +OMEP40CA4 PO; -OMEP40CA97 PO
--- NOTE | 2021-01-30 15:13 | REP ---
INDICATION: COLON CA COMPARISON: Multiple latest 10/20/2020 TECHNIQUE: Standard helical technique after the intravenous administration of 100 cc Isovue 370. FINDINGS: The mediastinum and pulmonary nikki are stable. No mass or adenopathy has developed. There are no pleural or pericardial effusions. The imaged osseous structures are stable. Evaluation of the lung dacosta shows a few scattered calcified granulomas status quo. There is a stable area of slightly irregular pleural thickening in the right upper lobe posteriorly. This has been stable since 2015. There is an area of irregular pleural thickening in the anterior inferior left upper lobe also stable since that [address] There is pleuroparenchymal scarring which is unchanged. No new abnormal nodules, masses, or opacities seem to have developed. Patient is status post left mastectomy. IMPRESSION: No significant change compared to prior exams with findings as described above. <Electronically signed by Parish Ny > 01/30/21 [id number]
--- NOTE | 2021-01-30 15:24 | REP ---
INDICATION: COLON CA. COMPARISON: Multiple latest 09/21/2020 TECHNIQUE: Standard helical technique after the intravenous administration of 100 cc Isovue 370 and oral bowel preparatory contrast administration. FINDINGS: Liver, spleen, gallbladder, pancreas, adrenal glands, and kidneys are unchanged. Note is again made of cholelithiasis. There is no significant change in appearance of the bowel loops. Chronic changes seen involving the sigmoid colon partially obscured by spray artifact arising from bilateral hip prosthesis. The pelvic mass seen previously on the right is much smaller. The abdominal aorta and para-aortic regions are unchanged and again seen to be within normal limits. Small lymph nodes are noted status quo. There is mesenteric adenopathy and evidence of peritoneal metastasis. There is no significant change in appearance of the imaged osseous structures. IMPRESSION: 1. 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 2. There is mesenteric adenopathy, however, this too is somewhat improved compared to the prior exam. 3. Improved right charisse pelvic mass. 4. Other findings as described above. <Electronically signed by Parish Ny > 01/30/21 [id number]
== END ==
LOC: M RAD 12:50
PROVIDERS: ATTEND Internal Medicine Medical Oncology
DX: C18.9 Malignant neoplasm of colon, unspecified (principal)
CPT/HCPCS: 71260; 74177; Q9963; Q9967

== ENCOUNTER → 2021-02-03 | Outpatient (CLI) | payer MEDICARE, BC ==
[~2021-02-03] MED LIST changes: -GASTROGRAFIN SOLUTION 30ML (Q9963) As Ordered ONE; -ISOVUE-370 76% 100ML VIAL As Ordered ONE; -OMEP40CA4 PO; +OMEP40CA97 PO
[2021-02-03 10:13] LABS: BLOOD UREA NITROGEN 17 MG/DL (7-18); CALCIUM LEVEL 8.8 MG/DL (8.8-10.2); CARBON DIOXIDE LEVEL 25 MEQ/L (21-32); CHLORIDE LEVEL 113 MEQ/L (98-107); CREATININE FOR GFR 0.91 MG/DL (0.55-1.30); GLOMERULAR FILTRATION RATE > 60.0 (>39); GLUCOSE, FASTING 99 MG/DL (70-100); POTASSIUM SERUM 3.8 MEQ/L (3.5-5.1); SODIUM LEVEL 144 MEQ/L (136-145)
== END ==
LOC: M LAB 08:49
PROVIDERS: ATTEND Physician Assistant
DX: I50.32 Chronic diastolic (congestive) heart failure (principal)

== ENCOUNTER → 2021-02-14 | Outpatient (CLI) | payer MEDICARE, BC ==
[2021-02-14 08:34] LABS: BLOOD UREA NITROGEN 19 MG/DL (7-18); CALCIUM LEVEL 8.7 MG/DL (8.8-10.2); CARBON DIOXIDE LEVEL 26 MEQ/L (21-32); CHLORIDE LEVEL 112 MEQ/L (98-107); CREATININE FOR GFR 0.93 MG/DL (0.55-1.30); GLOMERULAR FILTRATION RATE > 60.0 (>39); GLUCOSE, FASTING 100 MG/DL (70-100); POTASSIUM SERUM 3.9 MEQ/L (3.5-5.1); SODIUM LEVEL 143 MEQ/L (136-145)
== END ==
LOC: M LAB 07:37
PROVIDERS: ATTEND Physician Assistant
DX: I50.32 Chronic diastolic (congestive) heart failure (principal)

== ENCOUNTER → 2021-03-18 | Outpatient (CLI) | payer MEDICARE, BC ==
[~2021-03-18] MED LIST changes: +EQL50TAB2 PO; +LOSA25TA13 PO; -LOSA25TA14 PO; +LOSA50TA28 PO; -LOSA50TA88 PO; -OMEP-221 PO; +OMEP40CA4 PO; +OMEP40CA5 PO; -OMEP40CA97 PO; +ONDA-84 PO; -ONDA8TAB10 PO; -PROC10TA4 PO; +PROC10TA5 PO
[2021-03-18 09:37] LABS: BASO % 0.6 % (0.0-1.0); EOS # 0.2 10^3/uL (0.0-0.5); EOS % 2.4 % (0.0-3.0); HEMATOCRIT 32.2 % (36.0-47.0); HEMOGLOBIN 10.5 g/dl (12.0-15.5); LYMPH # 0.5 10^3/uL (1.5-5.0); LYMPH % 7.2 % (24.0-44.0); MEAN CORPUSCULAR HEMOGLOBIN 34.1 pg (27.0-33.0); MEAN CORPUSCULAR HGB CONC 32.6 g/dl (32.0-36.5); MEAN CORPUSCULAR VOLUME 104.5 fl (80.0-96.0); MONO # 0.6 10^3/uL (0.0-0.8); MONO % 8.1 % (2.0-8.0); NEUTROPHILS # 5.7 10^3/uL (1.5-8.5); NEUTROPHILS % 81.3 % (36.0-66.0); PLATELET COUNT, AUTOMATED 114 10^3/uL (150-450); RED BLOOD COUNT 3.08 10^6/uL (4.00-5.40); WHITE BLOOD COUNT 7.1 10^3/uL (4.0-10.0)
[2021-03-18 09:38] LABS: APPEARANCE, URINE CLEAR (CLEAR); BACTERIA, URINE AUTO NEGATIVE (NEGATIVE); BILIRUBIN, URINE AUTO NEGATIVE (NEGATIVE); BLOOD, URINE BLOOD 1+ (NEGATIVE); COLOR, URINE YELLOW (YELLOW); GLUCOSE, URINE (UA) AUTO NEGATIVE (NEGATIVE); KETONE, URINE AUTO NEGATIVE (NEGATIVE); LEUKOCYTE ESTERASE, URINE AUTO NEGATIVE (NEGATIVE); MUCUS, URINE SMALL (NEGATIVE); NITRITE, URINE AUTO NEGATIVE (NEGATIVE); PROTEIN, URINE AUTO NEGATIVE (NEGATIVE); RBC, URINE AUTO 3 /HPF (0-3); SPECIFIC GRAVITY URINE AUTO 1.014 (1.002-1.035); SQUAMOUS EPITHELIAL CELL UR AU 2 /HPF (0-6); UROBILINOGEN, URINE AUTO 0.2 mg/dL (0.0-2.0); WBC, URINE AUTO 4 /HPF (0-3)
[2021-03-18 11:37] LABS: ALBUMIN 3.4 GM/DL (3.2-5.2); ALT/SGPT 99 U/L (12-78); BILIRUBIN,TOTAL 0.6 MG/DL (0.2-1.0); BLOOD UREA NITROGEN 22 MG/DL (7-18); CARBON DIOXIDE LEVEL 25 MEQ/L (21-32); CHLORIDE LEVEL 108 MEQ/L (98-107); CREATININE FOR GFR 0.87 MG/DL (0.55-1.30); GLOMERULAR FILTRATION RATE > 60.0 (>39); GLUCOSE, FASTING 103 MG/DL (70-100); MAGNESIUM LEVEL 2.2 MG/DL (1.8-2.4); POTASSIUM SERUM 4.2 MEQ/L (3.5-5.1); SODIUM LEVEL 139 MEQ/L (136-145); TOTAL PROTEIN 6.1 GM/DL (6.4-8.2)
== END ==
LOC: M LAB 08:22
PROVIDERS: ATTEND Internal Medicine Medical Oncology
DX: D69.6 Thrombocytopenia, unspecified (principal)

== ENCOUNTER → 2021-04-01 | Outpatient (CLI) | payer MEDICARE, BC ==
[~2021-04-01] MED LIST changes: -EQL50TAB2 PO; -LOSA25TA13 PO; +LOSA25TA14 PO; -LOSA50TA28 PO; +LOSA50TA88 PO; +OMEP-221 PO; -OMEP40CA5 PO; -ONDA-84 PO; +ONDA8TAB10 PO; +PROC10TA4 PO; -PROC10TA5 PO
[2021-04-01 07:16] LABS: BASO % 0.7 % (0.0-1.0); EOS # 0.3 10^3/uL (0.0-0.5); HEMATOCRIT 32.7 % (36.0-47.0); HEMOGLOBIN 10.7 g/dl (12.0-15.5); LYMPH # 0.8 10^3/uL (1.5-5.0); LYMPH % 14.9 % (24.0-44.0); MEAN CORPUSCULAR HEMOGLOBIN 34.3 pg (27.0-33.0); MEAN CORPUSCULAR HGB CONC 32.7 g/dl (32.0-36.5); MEAN CORPUSCULAR VOLUME 104.8 fl (80.0-96.0); MONO # 0.5 10^3/uL (0.0-0.8); MONO % 8.8 % (2.0-8.0); NEUTROPHILS # 3.8 10^3/uL (1.5-8.5); NEUTROPHILS % 67.7 % (36.0-66.0); RED BLOOD COUNT 3.12 10^6/uL (4.00-5.40); WHITE BLOOD COUNT 5.6 10^3/uL (4.0-10.0)
[2021-04-01 07:40] LABS: ALBUMIN 3.1 GM/DL (3.2-5.2); BILIRUBIN,TOTAL 0.3 MG/DL (0.2-1.0); CALCIUM LEVEL 8.7 MG/DL (8.8-10.2); CREATININE FOR GFR 0.97 MG/DL (0.55-1.30); GLOMERULAR FILTRATION RATE 59.6 (>39); MAGNESIUM LEVEL 2.1 MG/DL (1.8-2.4); POTASSIUM SERUM 3.9 MEQ/L (3.5-5.1); TOTAL PROTEIN 6.2 GM/DL (6.4-8.2)
[2021-04-01 07:51] LABS: PLATELET COUNT, AUTOMATED 66 10^3/uL (150-450)
[2021-04-01 13:29] LABS: CA19-9 TUMOR MARKER,CARBOHYDRA 9.2 U/ML (<35.0)
== END ==
LOC: M LAB 06:47
PROVIDERS: ATTEND Internal Medicine Medical Oncology
DX: C18.9 Malignant neoplasm of colon, unspecified (principal)

== ENCOUNTER → 2021-06-03 | Outpatient (CLI) | payer MEDICARE, BC ==
[~2021-06-03] MED LIST changes: +EQL50TAB2 PO
--- NOTE | 2021-06-03 16:55 | REP ---
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 Intra-abdominal metastatic disease. And chemotherapy treatment. There is also a remote prior history of bilateral breast carcinoma. COMPARISON: Comparison PET-CT studies are from October 29, 2020 and September 26, 2010. TECHNIQUE: Forty-six minutes following the intravenous injection of a 6 9.42 mCi dose of F-18 FDG, three-dimensional PET scintigraphy is acquired from the skull base to the proximal thighs. Triplanar noncontrast CT scanning is acquired through the same anatomic range for attenuation correction, and image registration with scan parameters optimized to minimize radiation exposure to the patient. PET scintigraphy and CT datasets were fused and displayed on a workstation with multiplanar and projection display capability. FINDINGS: Head and neck soft tissues are unremarkable. No axillary adenopathy is seen. There is no abnormal hypermetabolic uptake within the chest. No abnormal hypermetabolic uptake is seen in the liver. The previously noted fairly bulky omental disease is much improved. There is some streaky omental nodularity with non hypermetabolic uptake anterior to the left lobe of the liver. Maximum standard uptake value 1.91. The bulky pelvic hypermetabolic disease noted previously is improved as well. There is a curvilinear pattern of increased uptake along the sigmoid colon where there CT study shows mural thickening. Maximum standard uptake value here is 5.93. No new hypermetabolic uptake focus is seen in the abdomen or pelvis. No abnormal focal skeletal hypermetabolic uptake. IMPRESSION: Significant improvement. <Electronically signed by Chaz Valenzuela > 06/03/21 [id number]
== END ==
LOC: M PLARAD 13:14
PROVIDERS: ATTEND Internal Medicine Medical Oncology
DX: C18.7 Malignant neoplasm of sigmoid colon (principal)
CPT/HCPCS: 78815; A9552

== ENCOUNTER → 2021-08-19 | Outpatient (REF) | payer MEDICARE, BC ==
[2021-08-19 11:29] LABS: CHOLESTEROL RISK RATIO 3.122 (<5)
== END ==
LOC: M LAB REF 09:54
PROVIDERS: ATTEND Physician Assistant
DX: E78.00 Pure hypercholesterolemia, unspecified (principal)

== ENCOUNTER → 2021-08-28 | Outpatient (CLI) | payer MEDICARE, BC ==
[~2021-08-28] MED LIST changes: +GASTROGRAFIN SOLUTION 30ML (Q9963) As Ordered ONE; +ISOVUE-370 76% 100ML VIAL As Ordered ONE; +LOSA25TA13 PO; -LOSA25TA14 PO; +LOSA50TA28 PO; -LOSA50TA88 PO; -OMEP-221 PO; +OMEP40CA5 PO; +ONDA-84 PO; -ONDA8TAB10 PO; -PROC10TA4 PO; +PROC10TA5 PO
== END ==
LOC: M RAD 07:30
PROVIDERS: ATTEND Internal Medicine Medical Oncology
DX: C18.9 Malignant neoplasm of colon, unspecified (principal)
CPT/HCPCS: 71260; 74177; G0463; Q9963; Q9967

== ENCOUNTER → 2021-09-17 | Outpatient (REF) | payer MEDICARE, BC ==
[~2021-09-17] MED LIST changes: -GASTROGRAFIN SOLUTION 30ML (Q9963) As Ordered ONE; -ISOVUE-370 76% 100ML VIAL As Ordered ONE; -LOSA25TA13 PO; +LOSA25TA14 PO; -LOSA50TA28 PO; +LOSA50TA88 PO; +OMEP-221 PO; -OMEP40CA5 PO; -ONDA-84 PO; +ONDA8TAB10 PO; +PROC10TA4 PO; -PROC10TA5 PO
[2021-09-17 10:59] LABS: ALBUMIN 3.1 GM/DL (3.2-5.2); BILIRUBIN,DIRECT 0.2 MG/DL (0.0-0.2); BILIRUBIN,TOTAL 0.6 MG/DL (0.2-1.0); CHOLESTEROL RISK RATIO 3.423 (<5)
== END ==
LOC: M LAB REF 10:17
PROVIDERS: ATTEND Physician Assistant
DX: R74.8 Abnormal levels of other serum enzymes (principal); E78.00 Pure hypercholesterolemia, unspecified

== ENCOUNTER → 2021-10-28 | Outpatient (CLI) | payer MEDICARE, BC ==
[~2021-10-28] MED LIST changes: +LOSA25TA13 PO; -LOSA25TA14 PO; +LOSA50TA28 PO; -LOSA50TA88 PO; -OMEP-221 PO; +OMEP40CA5 PO; +ONDA-84 PO; -ONDA8TAB10 PO; -PROC10TA4 PO; +PROC10TA5 PO
== END ==
LOC: M PLARAD 12:23
PROVIDERS: ATTEND Internal Medicine Medical Oncology
DX: C18.8 Malignant neoplasm of overlapping sites of colon (principal)
CPT/HCPCS: 78815; A9552

== ENCOUNTER → 2021-11-08 | Outpatient (CLI) | payer MEDICARE, BC | LOC: M RAD 09:19 | PROVIDERS: ATTEND Internal Medicine Medical Oncology | DX: C18.9 Malignant neoplasm of colon, unspecified (principal) | CPT/HCPCS: 78306; A9503 ==

== ENCOUNTER → 2021-11-22 | Outpatient (CLI) | payer MEDICARE, BC ==
[~2021-11-22] MED LIST changes: +PROHANCE 279.3MG/ML 5ML VIAL As Ordered ONE
== END ==
LOC: M RAD 08:55
PROVIDERS: ATTEND Internal Medicine Medical Oncology
DX: C18.9 Malignant neoplasm of colon, unspecified (principal)
CPT/HCPCS: 74183; A9576

== ENCOUNTER → 2021-11-28 | Outpatient (REF) | payer MEDICARE, BC ==
[~2021-11-28] MED LIST changes: -PROHANCE 279.3MG/ML 5ML VIAL As Ordered ONE
[2021-11-28 11:11] LABS: C REACTIVE PROTEIN QUANTITATIV < 0.30 MG/DL (0.00-0.30); CHOLESTEROL LEVEL 216 MG/DL (<200); CHOLESTEROL RISK RATIO 3.375 (<5); HDL CHOLESTEROL 64 MG/DL (>40); LDL CHOLESTEROL 142 MG/DL (<100); MAGNESIUM LEVEL 2.2 MG/DL (1.8-2.4); NON-HDL-C 152 MG/DL; TRIGLYCERIDES LEVEL 50 MG/DL (<150)
[2021-11-28 11:23] LABS: TOTAL 25(OH) VITAMIN D 31.1 NG/ML (30.0-100.0)
[2021-11-28 11:34] LABS: HEPATITIS B SURFACE ANTIGEN NEGATIVE (NEGATIVE)
[2021-11-28 12:01] LABS: HEPATITIS C VIRUS ABY INDEX 0.2 INDEX (<0.8)
[2021-11-28 12:02] LABS: HEPATITIS B CORE ANTIBODY IGM NEGATIVE (NEGATIVE)
[2021-11-28 16:27] LABS: HEMOGLOBIN A1c 5.2 %
== END ==
LOC: M LAB REF 10:12
PROVIDERS: ATTEND Nurse Practitioner Family
DX: R73.09 Other abnormal glucose (principal); I10 Essential (primary) hypertension; E78.5 Hyperlipidemia, unspecified; E55.9 Vitamin D deficiency, unspecified; R79.89 Other specified abnormal findings of blood chemistry; Z79.51 Long term (current) use of inhaled steroids; Z79.899 Other long term (current) drug therapy

== ENCOUNTER → 2021-12-10 | Outpatient (REF) | payer MEDICARE, BC ==
[~2021-12-10] MED LIST changes: +ASPI-1 PO
== END ==
LOC: M LAB REF 09:12
PROVIDERS: ATTEND Nurse Practitioner Family
DX: R79.89 Other specified abnormal findings of blood chemistry (principal)

== ENCOUNTER 2022-01-13 01:50 | Emergency (ER) | payer MEDICARE, BC ==
[~2022-01-13] VITALS: Ht 170.2 cm; Wt 100.0 kg
[2022-01-13] MEDS ORDERED: ONDANSETRON 4MG/2ML VIAL IV ONE (02:25)
[2022-01-13 03:11] LABS: BASO # 0.1 10^3/uL (0.0-0.2); BASO % 0.3 % (0.0-1.0); EOS # 0.2 10^3/uL (0.0-0.5); EOS % 0.6 % (0.0-3.0); HEMATOCRIT 36.2 % (36.0-47.0); HEMOGLOBIN 12.1 g/dl (12.0-15.5); LYMPH # 0.6 10^3/uL (1.5-5.0); LYMPH % 2.2 % (24.0-44.0); MEAN CORPUSCULAR HEMOGLOBIN 34.5 pg (27.0-33.0); MEAN CORPUSCULAR HGB CONC 33.4 g/dl (32.0-36.5); MEAN CORPUSCULAR VOLUME 103.1 fl (80.0-96.0); MONO # 0.7 10^3/uL (0.0-0.8); MONO % 2.6 % (2.0-8.0); NEUTROPHILS # 26.3 10^3/uL (1.5-8.5); NEUTROPHILS % 93.5 % (36.0-66.0); PLATELET COUNT, AUTOMATED 103 10^3/uL (150-450); RED BLOOD COUNT 3.51 10^6/uL (4.00-5.40); WHITE BLOOD COUNT 28.1 10^3/uL (4.0-10.0)
[2022-01-13 03:25] LABS: CK-MB VALUE MASS 1.7 NG/ML (<3.6)
[2022-01-13 03:28] LABS: ALBUMIN 3.4 GM/DL (3.2-5.2); BILIRUBIN,TOTAL 0.6 MG/DL (0.2-1.0); CALCIUM LEVEL 9.1 MG/DL (8.8-10.2); CREATININE FOR GFR 1.07 MG/DL (0.55-1.30); GLOMERULAR FILTRATION RATE 53.2 (>39); POTASSIUM SERUM 4.2 MEQ/L (3.5-5.1); TOTAL PROTEIN 6.4 GM/DL (6.4-8.2)
[2022-01-13] MEDS ORDERED: NS 1,000 ML IV ONE (04:05)
[2022-01-13] MEDS ORDERED: ISOVUE-370 76% 100ML VIAL As Ordered ONE (04:13)
[2022-01-13 05:09] LABS: RSV AMPLIFICATION NEGATIVE (NEGATIVE)
[2022-01-13] MEDS ORDERED: CEFEPIME HCL 1 GM in D5W MINI-BAG PLUS 50 ML IV ONE (05:35)
[2022-01-13] MEDS ORDERED: LOSA25TA13 PO (06:19)
[2022-01-13] MEDS ORDERED: HOME MED LIST COMPLETE! XX SCH (06:20)
[2022-01-13 07:24] LABS: HEMOGLOBIN 11.2 g/dl (12.0-15.5); MEAN CORPUSCULAR HEMOGLOBIN 35.8 pg (27.0-33.0); MEAN CORPUSCULAR HGB CONC 33.9 g/dl (32.0-36.5); MEAN CORPUSCULAR VOLUME 105.4 fl (80.0-96.0); RED BLOOD COUNT 3.13 10^6/uL (4.00-5.40); WHITE BLOOD COUNT 24.4 10^3/uL (4.0-10.0)
[2022-01-13 07:31] LABS: PLATELET COUNT, AUTOMATED 88 10^3/uL (150-450)
[2022-01-13 09:44] VITALS: BP 133/65
== END 2022-01-13 09:50 | disposition home or self-care (01) ==
LOC: M ED 01:50 → CANBEDREQ 09:02 → M ED 09:50
DX: K85.90 Acute pancreatitis without necrosis or infection, unspecified (principal); K44.9 Diaphragmatic hernia without obstruction or gangrene; C18.9 Malignant neoplasm of colon, unspecified; I11.0 Hypertensive heart disease with heart failure; I50.9 Heart failure, unspecified; E78.5 Hyperlipidemia, unspecified; Z79.51 Long term (current) use of inhaled steroids; Z79.899 Other long term (current) drug therapy; Z88.2 Allergy status to sulfonamides; Z88.8 Allergy status to other drugs, medicaments and biological substances; Z96.643 Presence of artificial hip joint, bilateral
CPT/HCPCS: 71045; 74177; 80053; 81001; 82550; 82553; 83605; 83690; 84484; 85025; 85027; 85049; 85055; 87040; 87086; 87486; 87581; 87631; 87633; 87798; 93005; 96361; 96365; 99284; J0692; J2405; Q9967

== ENCOUNTER → 2022-02-28 | Outpatient (CLI) | payer MEDICARE, BC ==
[2022-02-28 07:14] LABS: HEMATOCRIT 33.2 % (36.0-47.0); HEMOGLOBIN 11.1 g/dl (12.0-15.5); MEAN CORPUSCULAR HEMOGLOBIN 34.5 pg (27.0-33.0); MEAN CORPUSCULAR HGB CONC 33.4 g/dl (32.0-36.5); MEAN CORPUSCULAR VOLUME 103.1 fl (80.0-96.0); PLATELET COUNT, AUTOMATED 80 10^3/uL (150-450); RED BLOOD COUNT 3.22 10^6/uL (4.00-5.40); WHITE BLOOD COUNT 9.6 10^3/uL (4.0-10.0)
[2022-02-28 07:40] LABS: ATYPICAL LYMPH 2 % (0-5); BASOPHILS 1 % (0-1); EOSINOPHILS 2 % (0-3); LYMPHOCYTES 8 % (16-44); METAMYELOCYTES 1 % (0-0); MONOCYTES 7 % (0-5); NEUTROPHILS 67 % (28-66)
[2022-02-28 07:42] LABS: OVALOCYTES 1+; PLATELET ESTIMATE DECREASED (NORMAL); TEAR DROP CELLS 1+
[2022-02-28 07:44] LABS: ALBUMIN 3.1 GM/DL (3.2-5.2); BILIRUBIN,DIRECT 0.2 MG/DL (0.0-0.2); BILIRUBIN,TOTAL 0.4 MG/DL (0.2-1.0); CHOLESTEROL RISK RATIO 3.056 (<5); CREATININE FOR GFR 1.17 MG/DL (0.55-1.30); GLOMERULAR FILTRATION RATE 47.9 (>39)
== END ==
LOC: M LAB 06:46
PROVIDERS: ATTEND Internal Medicine Gastroenterology
DX: K76.89 Other specified diseases of liver (principal)

== ENCOUNTER → 2022-04-21 | Outpatient (CLI) | payer MEDICARE, BC ==
[~2022-04-21] MED LIST changes: +PROHANCE 279.3MG/ML 5ML VIAL As Ordered ONE
== END ==
LOC: M RAD 10:30
PROVIDERS: ATTEND Physician Assistant Medical
DX: K76.89 Other specified diseases of liver (principal); K59.00 Constipation, unspecified; R93.5 Abnormal findings on diagnostic imaging of other abdominal regions, including retroperitoneum; R16.1 Splenomegaly, not elsewhere classified
CPT/HCPCS: 74183; A9576

== ENCOUNTER → 2022-06-09 | Outpatient (CLI) | payer MEDICARE, BC ==
[~2022-06-09] MED LIST changes: +DIFI200T PO; +GASTROGRAFIN SOLUTION 30ML (Q9963) As Ordered ONE; +ISOVUE-370 76% 100ML VIAL As Ordered ONE; +LEVO1TAB39 PO; -PROHANCE 279.3MG/ML 5ML VIAL As Ordered ONE
== END ==
LOC: M RAD 08:41
PROVIDERS: ATTEND Internal Medicine Medical Oncology
DX: R18.8 Other ascites (principal); R16.1 Splenomegaly, not elsewhere classified; C18.9 Malignant neoplasm of colon, unspecified; Z90.12 Acquired absence of left breast and nipple
CPT/HCPCS: 71260; 74177; Q9963; Q9967

== ENCOUNTER → 2022-08-04 | Outpatient (CLI) | payer MEDICARE, BC ==
[~2022-08-04] MED LIST changes: +FURO20TA2; -GASTROGRAFIN SOLUTION 30ML (Q9963) As Ordered ONE; -ISOVUE-370 76% 100ML VIAL As Ordered ONE; +SPIR-10
== END ==
LOC: M CARPUL 08:15
PROVIDERS: ATTEND Physician Assistant
DX: R01.1 Cardiac murmur, unspecified (principal)

== ENCOUNTER → 2022-08-18 | Outpatient (CLI) | payer MEDICARE, BC ==
[~2022-08-18] MED LIST changes: +GASTROGRAFIN SOLUTION 30ML As Ordered ONE; +ISOVUE-370 76% 100ML VIAL As Ordered ONE
== END ==
LOC: M RAD 08:15
PROVIDERS: ATTEND Internal Medicine Medical Oncology
DX: C18.9 Malignant neoplasm of colon, unspecified (principal)
CPT/HCPCS: 71260; 74177; Q9963; Q9967

== ENCOUNTER → 2022-08-25 | Outpatient (REF) | payer MEDICARE, BC ==
[~2022-08-25] MED LIST changes: -GASTROGRAFIN SOLUTION 30ML As Ordered ONE; -ISOVUE-370 76% 100ML VIAL As Ordered ONE; +TORS10TA3
[2022-08-25 11:50] LABS: CALCIUM LEVEL 8.6 MG/DL (8.3-10.6); CREATININE FOR GFR 1.23 MG/DL (0.55-1.30); GLOMERULAR FILTRATION RATE 45.2 (>39); POTASSIUM SERUM 3.7 MMOL/L (3.5-5.1)
== END ==
LOC: M LAB REF 10:40
PROVIDERS: ATTEND Physician Assistant
DX: I50.32 Chronic diastolic (congestive) heart failure (principal)

== ENCOUNTER → 2022-09-22 | Outpatient (REF) | payer MEDICARE, BC | LOC: M LAB REF 10:03 | PROVIDERS: ATTEND Physician Assistant | DX: I50.32 Chronic diastolic (congestive) heart failure (principal); E83.42 Hypomagnesemia ==

== ENCOUNTER → 2022-09-26 | Outpatient (REF) | payer MEDICARE, BC ==
[~2022-09-26] MED LIST changes: +FERR325T3 PO
[2022-09-26 18:52] LABS: TOTAL PROTEIN,RANDOM URINE 22.3 MG/DL (0.0-14.0)
[2022-09-26 18:56] LABS: CREATININE,RANDOM URINE 192.8 MG/DL
== END ==
LOC: M LAB REF 16:55
PROVIDERS: ATTEND Internal Medicine Nephrology
DX: R60.0 Localized edema (principal)

== ENCOUNTER → 2022-09-30 | Outpatient (CLI) | payer MEDICARE, BC | LOC: M ONCM 08:14 | PROVIDERS: ATTEND Dietitian, Registered | DX: Z71.3 Dietary counseling and surveillance (principal); C18.9 Malignant neoplasm of colon, unspecified; Z92.21 Personal history of antineoplastic chemotherapy; Z68.35 Body mass index [BMI] 35.0-35.9, adult; Z85.3 Personal history of malignant neoplasm of breast ==

== ENCOUNTER → 2022-10-27 | Outpatient (REF) | payer MEDICARE, BC ==
[~2022-10-27] MED LIST changes: +ALLO100T PO
[2022-10-27 10:51] LABS: HEMATOCRIT 29.6 % (36.0-47.0); HEMOGLOBIN 9.3 g/dl (12.0-15.5); MEAN CORPUSCULAR HEMOGLOBIN 28.3 pg (27.0-33.0); MEAN CORPUSCULAR HGB CONC 31.4 g/dl (32.0-36.5); PLATELET COUNT, AUTOMATED 116 10^3/uL (150-450); RED BLOOD COUNT 3.29 10^6/uL (4.00-5.40); WHITE BLOOD COUNT 5.6 10^3/uL (4.0-10.0)
[2022-10-27 11:16] LABS: URIC ACID 11.7 MG/DL (3.1-7.8)
[2022-10-27 11:20] LABS: ALBUMIN 2.9 G/DL (3.2-5.2); CALCIUM LEVEL 8.6 MG/DL (8.3-10.6); CREATININE FOR GFR 1.6 MG/DL (0.55-1.30); GLOMERULAR FILTRATION RATE 33.4 (>39); PHOSPHORUS LEVEL 3.5 MG/DL (2.4-5.1); POTASSIUM SERUM 3.8 MMOL/L (3.5-5.1)
== END ==
LOC: M LAB REF 10:33
PROVIDERS: ATTEND Internal Medicine Nephrology
DX: N18.31 Chronic kidney disease, stage 3a (principal); E79.0 Hyperuricemia without signs of inflammatory arthritis and tophaceous disease

== ENCOUNTER 2022-11-03 00:41 | Emergency (ER) | payer MEDICARE, BC ==
[~2022-11-03] VITALS: Ht 170.2 cm; Wt 103.0 kg
[~2022-11-03 00:41] MED LIST changes: -SPIR-10; +SPIR-10 PO; -TORS10TA3; +TORS10TA3 PO
[2022-11-03 00:55] VITALS: BP 122/60
[2022-11-03] MEDS ORDERED: ONDANSETRON 4MG ORAL DISINTEGRATING TAB PO ONE (01:25)
[2022-11-05] MEDS ORDERED: ONDA4TAB6 PO ×2 (13:04→19:20)
== END 2022-11-03 02:45 | disposition left against medical advice (07) ==
LOC: M ED 00:41
DX: Z53.21 Procedure and treatment not carried out due to patient leaving prior to being seen by health care provider (principal)

== ENCOUNTER 2022-11-05 14:58 | Inpatient (IN) | payer MEDICARE, BC ==
[~2022-11-05] VITALS: Ht 170.2 cm; Wt 104.1 kg
[~2022-11-05 14:58] MED LIST changes: +ONDA4TAB6 PO
[2022-11-05] MEDS ORDERED: ONDANSETRON 4MG 2ML VIAL IV ONE (15:20)
[2022-11-05] MEDS ORDERED: MORPHINE 4 MG/ML 1ML VIAL IV PRN (15:20)
[2022-11-05 15:53] LABS: BASO # 0.1 10^3/uL (0.0-0.2); EOS # 0.1 10^3/uL (0.0-0.5); EOS % 1.2 % (0.0-3.0); HEMATOCRIT 29.7 % (36.0-47.0); HEMOGLOBIN 9.4 g/dl (12.0-15.5); LYMPH # 0.8 10^3/uL (1.5-5.0); LYMPH % 10.3 % (24.0-44.0); MEAN CORPUSCULAR HEMOGLOBIN 28.4 pg (27.0-33.0); MEAN CORPUSCULAR HGB CONC 31.6 g/dl (32.0-36.5); MEAN CORPUSCULAR VOLUME 89.7 fl (80.0-96.0); MONO # 0.8 10^3/uL (0.0-0.8); MONO % 11.3 % (2.0-8.0); NEUTROPHILS # 5.5 10^3/uL (1.5-8.5); NEUTROPHILS % 75.8 % (36.0-66.0); PLATELET COUNT, AUTOMATED 223 10^3/uL (150-450); RED BLOOD COUNT 3.31 10^6/uL (4.00-5.40); WHITE BLOOD COUNT 7.3 10^3/uL (4.0-10.0)
[2022-11-05] MEDS: NS 1,000 ML IV SCH (15:53)
[2022-11-05 16:04] LABS: INR 1.04; PROTHROMBIN TIME 13.8 SECONDS (12.5-14.5)
[2022-11-05 16:25] LABS: ALBUMIN 2.9 G/DL (3.2-5.2); BILIRUBIN,DIRECT 0.3 MG/DL (<0.4); CALCIUM LEVEL 9.3 MG/DL (8.3-10.6); CREATININE FOR GFR 1.82 MG/DL (0.55-1.30); GLOMERULAR FILTRATION RATE 28.8 (>39); POTASSIUM SERUM 3.4 MMOL/L (3.5-5.1)
[2022-11-05 16:26] LABS: RSV AMPLIFICATION NEGATIVE (NEGATIVE)
[2022-11-05] MEDS ORDERED: METOCLOPRAMIDE INJ 10MG/2ML VIAL IV ONE (18:10)
[2022-11-05 18:25] LABS: BILIRUBIN,TOTAL 0.9 MG/DL (0.3-1.2); TOTAL PROTEIN 6.2 G/DL (5.7-8.2)
[2022-11-05] MEDS ORDERED: ONDANSETRON 4MG 2ML VIAL IV PRN (18:30)
[2022-11-05] MEDS ORDERED: BISACODYL 10MG SUPP PR ONE (19:15)
[2022-11-05] MEDS ORDERED: ONDA4TAB6 PO (19:20)
[2022-11-05] MEDS ORDERED: HOME MED LIST COMPLETE! XX SCH (19:25)
[2022-11-05] MEDS ORDERED: ALBUTEROL 90 MCG/ACT 8GM HFA INHALER INH PRN (19:50)
[2022-11-05 20:11] VITALS: BP 118/81
[2022-11-05 20:44] LABS: FREE T4 1.24 NG/DL (0.89-1.76); THYROID STIMULATING HORMONE 5.905 uIU/ML (0.55-4.78)
[2022-11-05] MEDS: KCL 10MEQ/100ML SWI (KRUN) 10 MEQ in IV 1 EA IV SCH ×2 (21:02→22:09)
[2022-11-05 22:28] LABS: MAGNESIUM LEVEL 2.2 MG/DL (1.8-2.4)
[2022-11-06] VITALS (7 sets, daily range): BP systolic 104–121; BP diastolic 64–80
[2022-11-06] MEDS: NS 1,000 ML IV SCH (01:30)
[2022-11-06 05:40] LABS: HEMATOCRIT 27.8 % (36.0-47.0); HEMOGLOBIN 8.8 g/dl (12.0-15.5); MEAN CORPUSCULAR HEMOGLOBIN 28.5 pg (27.0-33.0); MEAN CORPUSCULAR HGB CONC 31.7 g/dl (32.0-36.5); PLATELET COUNT, AUTOMATED 182 10^3/uL (150-450); RED BLOOD COUNT 3.09 10^6/uL (4.00-5.40); WHITE BLOOD COUNT 6.3 10^3/uL (4.0-10.0)
[2022-11-06 06:12] LABS: ALBUMIN 2.7 G/DL (3.2-5.2); BILIRUBIN,TOTAL 0.9 MG/DL (0.3-1.2); CALCIUM LEVEL 8.7 MG/DL (8.3-10.6); CREATININE FOR GFR 1.74 MG/DL (0.55-1.30); GLOMERULAR FILTRATION RATE 30.3 (>39); MAGNESIUM LEVEL 2.2 MG/DL (1.8-2.4); POTASSIUM SERUM 3.6 MMOL/L (3.5-5.1); TOTAL PROTEIN 5.6 G/DL (5.7-8.2)
[2022-11-06] MEDS ORDERED: CARVedilol 3.125 MG TAB PO SCH (09:00)
[2022-11-06 11:11] LABS: APPEARANCE, BODY FLUID CLEAR (CLEAR); ASCITES FL COLOR YELLOW (COLORLESS); SOURCE, BODY FLUID ASCITES
[2022-11-06] MEDS: OMEPRAZOLE 20MG CAP PO SCH (11:13)
[2022-11-06] MEDS: allopurinoL 100 MG TAB PO SCH (11:14)
[2022-11-06] MEDS: SENOKOT S TAB PO SCH ×2 (11:14→22:20)
[2022-11-06] MEDS: BISACODYL 10MG SUPP PR SCH ×2 (11:14→22:20)
[2022-11-06] MEDS: METOCLOPRAMIDE INJ 10MG/2ML VIAL IV SCH ×2 (11:15→14:09)
[2022-11-06 11:25] LABS: SOURCE, BODY FLUID ALBUMIN ASCITES
[2022-11-06 11:30] LABS: SOURCE, BODY FLUID GLUCOSE ASCITES
[2022-11-06 11:32] LABS: SOURCE, BODY FLUID TOT PROTEIN ASCITES; TOTAL PROTEIN, BODY FLUID 3.2 G/DL (NOT ESTABLISHED)
[2022-11-06] MEDS ORDERED: FUROSEMIDE 40MG/4ML VIAL IV SCH (15:00)
[2022-11-06] MEDS ORDERED: ACETAMINOPHEN 500 MG TAB PO ONE (16:55)
[2022-11-06] MEDS: FUROSEMIDE injection 250 MG in D5W 225 ML IV SCH (18:00)
[2022-11-06] MEDS: oxyCODONE 5MG TAB PO PRN (18:52)
[2022-11-07] VITALS (9 sets, daily range): BP systolic 40–139; BP diastolic 58–71
[2022-11-07] MEDS: oxyCODONE 5MG TAB PO PRN ×3 (03:47→19:24)
[2022-11-07] MEDS ORDERED: oxyCODONE 5MG TAB PO ONE (06:00)
[2022-11-07 08:57] LABS: CALCIUM LEVEL 8.4 MG/DL (8.3-10.6); CREATININE FOR GFR 1.47 MG/DL (0.55-1.30); GLOMERULAR FILTRATION RATE 36.8 (>39); POTASSIUM SERUM 3.2 MMOL/L (3.5-5.1)
[2022-11-07] MEDS: allopurinoL 100 MG TAB PO SCH (09:00)
[2022-11-07] MEDS ORDERED: MIRALAX *UNIT DOSE* 17GM PACKET PO SCH (09:00)
[2022-11-07] MEDS ORDERED: FERROUS SULFATE 325MG TAB PO SCH (09:00)
[2022-11-07 09:26] LABS: BASO % 0.3 % (0.0-1.0); EOS % 0.1 % (0.0-3.0); HEMATOCRIT 29.8 % (36.0-47.0); HEMOGLOBIN 9.5 g/dl (12.0-15.5); LYMPH # 0.4 10^3/uL (1.5-5.0); LYMPH % 2.8 % (24.0-44.0); MEAN CORPUSCULAR HEMOGLOBIN 28.5 pg (27.0-33.0); MEAN CORPUSCULAR HGB CONC 31.9 g/dl (32.0-36.5); MEAN CORPUSCULAR VOLUME 89.5 fl (80.0-96.0); MONO # 0.8 10^3/uL (0.0-0.8); NEUTROPHILS # 14.5 10^3/uL (1.5-8.5); NEUTROPHILS % 91.2 % (36.0-66.0); PLATELET COUNT, AUTOMATED 210 10^3/uL (150-450); RED BLOOD COUNT 3.33 10^6/uL (4.00-5.40); WHITE BLOOD COUNT 15.9 10^3/uL (4.0-10.0)
[2022-11-07] MEDS: SENOKOT S TAB PO SCH ×2 (09:33→20:34)
[2022-11-07] MEDS: OMEPRAZOLE 20MG CAP PO SCH (09:33)
[2022-11-07] MEDS: BISACODYL 10MG SUPP PR SCH ×2 (09:34→20:33)
[2022-11-07] MEDS: METOCLOPRAMIDE INJ 10MG/2ML VIAL IV SCH ×2 (09:34→18:08)
[2022-11-07] MEDS: POTASSIUM CHLORIDE 10MEQ SR TABLET PO SCH ×2 (09:45→20:34)
[2022-11-07] MEDS ORDERED: ISOVUE-370 76% 100ML VIAL As Ordered ONE (11:41)
[2022-11-07] MEDS: FUROSEMIDE injection 250 MG in D5W 225 ML IV SCH (18:06)
[2022-11-07] MEDS ORDERED: SIMETHICONE 80MG CHEW TAB PO PRN (20:10)
[2022-11-07] MEDS ORDERED: GI COCKTAIL 50ML BTL(HYOSCYAMINE/MAALOX/LIDOCAINE VISCOUS)(1:3:1) PO ONE (20:10)
[2022-11-07 21:01] LABS: CALCIUM LEVEL 8.6 MG/DL (8.3-10.6); POTASSIUM SERUM 4.2 MMOL/L (3.5-5.1)
[2022-11-07 21:14] LABS: CREATININE FOR GFR 1.61 MG/DL (0.55-1.30); GLOMERULAR FILTRATION RATE 33.1 (>39)
[2022-11-07] MEDS ORDERED: PANTOPRAZOLE 40MG VIAL IV SCH (22:30)
[2022-11-07] MEDS ORDERED: MORPHINE 2 MG/ML 1ML VIAL IV PRN (22:30)
[2022-11-07 22:53] LABS: HEMATOCRIT 43.1 % (36.0-47.0)
[2022-11-07 23:00] LABS: HEMOGLOBIN 13.3 g/dl (12.0-15.5)
[2022-11-07] MEDS ORDERED: NS 500 ML IV ONE ×2 (23:35→23:45)
[2022-11-07] MEDS ORDERED: SODIUM CHLORIDE 0.9% INJ 10 ML SYR IV PRN (23:50)
[2022-11-08] VITALS (43 sets, daily range): BP systolic 30–102; BP diastolic 41–66
[2022-11-08] MEDS ORDERED: HYDROCORTISONE 100MG/2ML VIAL IV ONE
[2022-11-08 00:02] LABS: ABG BASE EXCESS -14.1 (-2.0-2.0); ABG HCO3 14.1 MEQ/L (22.0-26.0); ABG O2 SATURATION 95.3 % (95.0-99.0); ABG PARTIAL PRESSURE CO2 41.7 mmHg (35.0-45.0); ABG STANDARD HCO3 13.5 MEQ/L (22.0-26.0); ABG TOTAL CO2 15.3 MEQ/L (23.0-31.0)
[2022-11-08] MEDS: NOREPINEPHRINE 4MG IN D5 250ML 4 MG in IV 1 EA IV SCH ×4 (00:04→01:59)
[2022-11-08 00:07] LABS: ABG pH (ARTERIAL) 7.146 UNITS (7.350-7.450)
[2022-11-08 00:08] LABS: HEMATOCRIT 34.6 % (36.0-47.0); HEMOGLOBIN 10.4 g/dl (12.0-15.5); MEAN CORPUSCULAR HEMOGLOBIN 27.9 pg (27.0-33.0); MEAN CORPUSCULAR HGB CONC 30.1 g/dl (32.0-36.5); MEAN CORPUSCULAR VOLUME 92.8 fl (80.0-96.0); PLATELET COUNT, AUTOMATED 329 10^3/uL (150-450); RED BLOOD COUNT 3.73 10^6/uL (4.00-5.40); WHITE BLOOD COUNT 3.6 10^3/uL (4.0-10.0)
[2022-11-08] MEDS ORDERED: SODIUM BICARBONATE 8.4% INJ 50ML SYRINGE IV STA ×2 (00:10)
[2022-11-08] MEDS ORDERED: SODIUM BICARBONATE 8.4% INJ 50ML SYRINGE As Ordered ONE (00:10)
[2022-11-08] MEDS ORDERED: VASOPRESSIN INJ 20UNITS/ML 1ML VIAL As Ordered ONE (00:16)
[2022-11-08 00:43] LABS: ALBUMIN 1.9 G/DL (3.2-5.2); BILIRUBIN,TOTAL 1.1 MG/DL (0.3-1.2); CALCIUM LEVEL 7.5 MG/DL (8.3-10.6); CREATININE FOR GFR 1.73 MG/DL (0.55-1.30); GLOMERULAR FILTRATION RATE 30.5 (>39); POTASSIUM SERUM 4.1 MMOL/L (3.5-5.1); TOTAL PROTEIN 3.8 G/DL (5.7-8.2)
[2022-11-08] MEDS ORDERED: NS 500 ML IV ONE ×2 (00:45)
[2022-11-08 00:59] LABS: ATYPICAL LYMPH 6 % (0-5); BLAST CELLS 1 % (0-0); LYMPHOCYTES 27 % (16-44); METAMYELOCYTES 2 % (0-0); MONOCYTES 5 % (0-5); MYELOCYTES 2 % (0-0); NEUTROPHILS 32 % (28-66); PLATELET ESTIMATE NORMAL (NORMAL)
[2022-11-08 01:00] LABS: ANISOCYTOSIS 1+; BURR CELLS 1+; MICROCYTOSIS 1+; OVALOCYTES 1+; POIKILOCYTOSIS 2+
[2022-11-08] MEDS: METOCLOPRAMIDE INJ 10MG/2ML VIAL IV SCH (01:00)
[2022-11-08] MEDS ORDERED: VASOPRESSIN INJ 20 UNITS in NS 499 ML IV SCH (01:00)
[2022-11-08] MEDS ORDERED: LACTULOSE 20GM/30ML SYRUP UDC NG SCH ×2 (01:00→18:00)
[2022-11-08] MEDS ORDERED: VANCOMYCIN HCL 1,000 MG, VIAL MATE ADAPTER 1 EACH in NS 250 ML IV ONE ×6 (01:00)
[2022-11-08 01:01] LABS: HYPOCHROMASIA 1+; POLYCHROMASIA 1+
[2022-11-08] MEDS: PIPERACILLIN/TAZOBACTAM SOD 2.25 GM in D5W MINI-BAG PLUS 50 ML IV SCH ×2 (01:15→02:00)
[2022-11-08] MEDS ORDERED: PHENYLEPHRINE HCL INJ 50 MG in D5W 495 ML IV SCH ×2 (02:20→02:42)
[2022-11-08] MEDS ORDERED: PHENYLEPHRINE 10MG/ML 1ML VIAL As Ordered ONE ×2 (02:22→02:26)
[2022-11-08 02:32] LABS: HEMATOCRIT 35.3 % (36.0-47.0); HEMOGLOBIN 10.8 g/dl (12.0-15.5)
[2022-11-08] MEDS ORDERED: MORPHINE 2 MG/ML 1ML VIAL IV PRN (04:30)
[2022-11-08] MEDS ORDERED: SODIUM CHLORIDE 0.9% INJ 10 ML SYR IV SCH (09:00)
[2022-11-08] MEDS ORDERED: LACTULOSE 20GM/30ML SYRUP UDC NG ONE (11:00)
[2022-11-08] MEDS ORDERED: VANCOMYCIN HCL 1,000 MG, VIAL MATE ADAPTER 1 EACH in NS 250 ML IV SCH (22:00)
== END 2022-11-08 04:59 | disposition expired | DRG 374 ==
LOC: M ED 14:58 → M ED INP 18:27 → M MSPAV 20:15 → M ICU 11-07 23:18
PROVIDERS: ADMIT Family Medicine; ATTEND Internal Medicine
PROC: 0W9G3ZZ Drainage of Peritoneal Cavity, Percutaneous Approach (ICD-10-PCS; principal; 2022-11-06 09:00)
DX: C18.7 Malignant neoplasm of sigmoid colon (principal); J96.01 Acute respiratory failure with hypoxia; K56.7 Ileus, unspecified; R18.0 Malignant ascites; K76.6 Portal hypertension; C78.6 Secondary malignant neoplasm of retroperitoneum and peritoneum; N17.9 Acute kidney failure, unspecified; K92.2 Gastrointestinal hemorrhage, unspecified; Z51.5 Encounter for palliative care; Z66 Do not resuscitate; G47.33 Obstructive sleep apnea (adult) (pediatric); E78.5 Hyperlipidemia, unspecified; K21.9 Gastro-esophageal reflux disease without esophagitis; N18.9 Chronic kidney disease, unspecified; J30.2 Other seasonal allergic rhinitis; I95.9 Hypotension, unspecified; I12.9 Hypertensive chronic kidney disease with stage 1 through stage 4 chronic kidney disease, or unspecified chronic kidney disease; J45.909 Unspecified asthma, uncomplicated; D64.9 Anemia, unspecified; E86.9 Volume depletion, unspecified; I89.0 Lymphedema, not elsewhere classified; R11.2 Nausea with vomiting, unspecified; K75.81 Nonalcoholic steatohepatitis (NASH); K74.60 Unspecified cirrhosis of liver; R16.1 Splenomegaly, not elsewhere classified; I27.20 Pulmonary hypertension, unspecified; I71.21 Aneurysm of the ascending aorta, without rupture; E87.6 Hypokalemia; R57.1 Hypovolemic shock; K76.82 Hepatic encephalopathy; Z92.21 Personal history of antineoplastic chemotherapy; Z96.643 Presence of artificial hip joint, bilateral; Z85.3 Personal history of malignant neoplasm of breast; Z79.899 Other long term (current) drug therapy; Z88.2 Allergy status to sulfonamides; Z88.8 Allergy status to other drugs, medicaments and biological substances